=== PATIENT | female | born 1950 | race Caucasian/White ===

== ENCOUNTER 2017-08-24 18:33 | Inpatient (IN) | payer OTHER, MEDICARE ==
[~2017-08-24] VITALS: Ht 152.4 cm; Wt 56.2 kg
--- NOTE | 2017-08-24 19:33 | ED GI/GU/ABDOMINAL COMPLAINT ---
History of Present Illness General Chief Complaint: General Adult Stated Complaint: COLONOSCOPY/ENDO THIS AM, STILL BLEEDING,-BLOODTHI Source: patient, family Exam Limitations: no limitations Vital Signs & Intake/Output Vital Signs & Intake/Output Vital Signs Date Time Temp Pulse Resp B/P B/P Pulse O2 O2 Flow FiO2 Mean Ox Delivery Rate 08/26 0814 97.0 98 21 104/58 97 Room Air 08/26 0400 97 Room Air 08/26 0000 95 Room Air 08/25 2300 98.4 86 28 132/80 95 Room Air 08/25 2000 99 Room Air 08/25 1600 96 Room Air 08/25 1600 97.6 89 17 118/68 96 Room Air ED Intake and Output 08/26 0000 08/25 1200 Intake Total 2220 600 Output Total 1500 400 Balance 720 200 Intake, IV 970 600 Intake, Oral 1250 0 Number 1 0 Bowel Movements Output, Urine 1500 400 Patient 124 lb Weight Weight Bed scale Measurement Method Allergies Coded Allergies: No Known Allergies (08/24/17) Reconcile Medications Atorvastatin Calcium (Lipitor) 40 MG TABLET 1 TAB PO DAILY DYSLIPIDEMIA ( Reported) Gemfibrozil 600 MG TABLET 1 TAB PO BID DYSLIPIDEMIA (Reported) Lisinopril/Hydrochlorothiazide (Lisinopril-Hctz 20-12.5 MG Tab) 20 MG-12.5 MG TABLET 1 TAB PO DAILY HTN (Reported) Metoprolol Succ XL (Toprol Xl) 50 MG TAB 1 TAB PO DAILY HTN (Reported) Triage Note: PT TO ED FOR C/C OF PASSING BRB WITH CLOTS. PT HAD ROUTINE COLONOSCOPY THIS MORNING AT 1000 AND AFTER PT STARTED TO HAVE BLOODY IN STOOL. +LIGHTHEADED AND HYPOTENSIVE IN TRIAGE. DENEIS ABD PAIN OR NAUSEA. Triage Nurses Notes Reviewed? yes ? N Is pt currently ? No Onset: Gradual Duration: hour(s): Timing: multiple episodes today Quality/Severity: moderate HPI: 67yo female with hx of HTN presents to ED complaining of blood in BMs beginning after colonoscopy earlier this morning with Dr. Casillas. Patient went for rountine colonoscopy this morning and it was noted that she had a large diverticula in rectum. Dr. Casillas placed clips in diverticula given bleeding and patient was sent home. Since being home patient has had many BMs consisting mostly of blood. PAtient states that she has no pain with defication. PAtient c/o dizziness with positional changes and lightheadedness. SHe denies chest pain, dyspnea, urinary symptoms, abdominal pain, nausea, vomiting. (Adri Limon) Past History Travel History Traveled to [place] past 21 day No Medical History Any Pertinent Medical History? see below for history Cardiovascular: hypertension, hyperlipidemia Surgical History Surgical History: non-contributory Psychosocial History What is your primary language Swedish Tobacco Use: Never used ETOH Use: denies use Illicit Drug Use: denies illicit drug use Family History Hx Contributory? No (Adri Limon) Review of Systems Review of Systems Constitutional: Reports: see HPI. EENTM: Reports: no symptoms. Respiratory: Reports: no symptoms. Cardiovascular: Reports: no symptoms. GI: Reports: see HPI. Genitourinary: Reports: no symptoms. Musculoskeletal: Reports: no symptoms. Skin: Reports: no symptoms. Neurological/Psychological: Reports: see HPI. Hematologic/Endocrine: Reports: no symptoms. Immunologic/Allergic: Reports: no symptoms. All Other Systems: Reviewed and Negative (Adri Limon) Physical Exam Physical Exam General Appearance: well developed/nourished, no apparent distress, alert, awake Head: atraumatic, normal appearance Eyes: Bilateral: normal appearance. Ears, Nose, Throat, Mouth: hearing grossly normal Neck: normal inspection, supple, full range of motion Respiratory: normal breath sounds, no respiratory distress, lungs clear Cardiovascular: regular rate/rhythm Gastrointestinal: normal bowel sounds, soft, non-tender, no organomegaly Back: normal inspection, normal range of motion Extremities: normal range of motion Neurologic/Psych: awake, alert, oriented x 3 Skin: intact, warm/dry, pallor Core Measures ACS in differential dx? No Sepsis Present: No Sepsis Focused Exam Completed? No (Adri Limon) Progress Differential Diagnosis: bowel obstruction, diverticulitis, diverticular bleed, acute blood loss, symptomatic anemia Plan of Care: Orders Procedure Date/time Status Full Liquid Diet 08/26 B Active ICU LAB BUNDLE 08/26 0500 Complete CBC WITHOUT DIFFERENTIAL 08/26 0500 Complete Clear Liquid Diet 08/25 B Complete CBC WITHOUT DIFFERENTIAL 08/25 2124 Complete ICU LAB BUNDLE 08/25 1600 Complete CBC WITHOUT DIFFERENTIAL 08/25 1600 Complete Current Medications Sig/Max Start time Last Medication Dose Stop Time Status Admin Atorvastatin Calcium 40 MG DAILY 08/26 1000 AC 08/26 (Lipitor) 0909 Metoprolol Succinate 25 MG DAILY 08/26 1000 AC 08/26 (Toprol XL) 0909 Gemfibrozil 600 MG BID 08/25 2200 AC 08/26 (Lopid 600 MG Tab) 0909 Phosphate 250 MG PC AND AT BEDTIME 08/25 1800 AC 08/26 (Neutra-Phos) 0909 Potassium Chloride 40 MEQ ONCE ONE 08/25 1045 CAN (K-Dur) 08/25 1046 Pantoprazole Sodium 40 MG DAILY 08/24 2199 AC 08/26 (Protonix) 0909 Laboratory Tests 08/26/17 0437: Anion Gap 10, Estimated GFR > 60, Glucose 98, Calcium 8.6, Phosphorus 2.8, Magnesium 1.9, Total Bilirubin 0.4, AST 29, ALT 40, Albumin 3.3 L, CBC w Diff NO MAN DIFF REQ, RBC 2.98 L, MCV 89.6, MCH 30.5, MCHC 34.0, RDW 13.6, MPV 7.9, Gran % 63.9, Lymphocytes % 21.7, Monocytes % 10.3 H, Eosinophils % 3.7, Basophils % 0.4, Absolute Granulocytes 5.1, Absolute Lymphocytes 1.7, Absolute Monocytes 0.8 H, Absolute Eosinophils 0.3, Absolute Basophils 0 08/25/173: CBC w Diff NO MAN DIFF REQ, RBC 2.93 L, MCV 88.8, MCH 30.4, MCHC 34.2, RDW 13.3 , MPV 7.8, Gran % 63.9, Lymphocytes % 21.9, Monocytes % 11.0 H, Eosinophils % 2.6, Basophils % 0.6, Absolute Granulocytes 4.6, Absolute Lymphocytes 1.6, Absolute Monocytes 0.8 H, Absolute Eosinophils 0.2, Absolute Basophils 0 08/25/17 1621: Anion Gap 9, Estimated GFR > 60, Glucose 114 H, Calcium 8.5, Phosphorus 1.7 L, Magnesium 1.9, Total Bilirubin 0.3, AST 24, ALT 32, Albumin 3.3 L, CBC w Diff NO MAN DIFF REQ, RBC 2.81 L, MCV 88.8, MCH 29.9, MCHC 33.7, RDW 13.9, MPV 7.7, Gran % 66.3, Lymphocytes % 20.9, Monocytes % 10.3 H, Eosinophils % 2.0, Basophils % 0.5, Absolute Granulocytes 4.2, Absolute Lymphocytes 1.3, Absolute Monocytes 0.7 H, Absolute Eosinophils 0.1, Absolute Basophils 0 08/25/17 1047: CBC w Diff NO MAN DIFF REQ, RBC 3.16 L, MCV 89.5, MCH 29.9, MCHC 33.3, RDW 13.5 , MPV 7.9, Gran % 66.9, Lymphocytes % 19.4 L, Monocytes % 12.5 H, Eosinophils % 0.8, Basophils % 0.4, Absolute Granulocytes 4.7, Absolute Lymphocytes 1.4, Absolute Monocytes 0.9 H, Absolute Eosinophils 0.1, Absolute Basophils 0 Microbiology 08/25 1000 UPPER RESP: Surveillance Culture - RECD Dr. Pacheco present to see and evaluate patient. She recommends ICU admission for scope and application of locale coagulants to diverticular bleed. Labs are pending. [phone] Discussed this patient with hospitalist Dr. Pantoja. Patient continues to pass large clots per rectum however is in no pain. Vital signs show improvement however persistent hypotension. Patient transfused one unit. Dr. Pacheco to scope patient tonight given persistent bleeding. Initial ED EKG: SINUS TACHYCARDIA @ 102BPM, NONSPECIFIC ST CHANGES (Adri Limon) Departure Departure Disposition: STILL A PATIENT Condition: Stable Clinical Impression Primary Impression: Lower GI bleed Referrals: Char ABDULLAHI,Celeste (PCP/Family) Departure Forms: Customer Survey General Discharge Information (Adri Limon) Departure Time of Disposition: 2033 Admission Note Spoke With: Mervin Pantoja MD Documentation of Exam: Documentation of any treatments & extenuating circumstances including Concerns Regarding Discharge (functional status, medication knowledge or non-compliance, living conditions, etc.) that warrant an admission rather than observation: [ICU ADMISSION, CLOSE H/H MONITORING, NPO, TRANSFUSION PER PROTOCOL, FLEX SIGMOIDOSCOPY] PA/MINING ANALYST Co-Sign Statement Statement: ED Attending supervision documentation- [X] I saw and evaluated the patient. I have also reviewed all the pertinent lab results and diagnostic results. I agree with the findings and the plan of care as documented in the PA's/MINING ANALYST's documentation. [X] I have reviewed the ED Record and agree with the PA's/MINING ANALYST's documentation. [] Additions or exceptions (if any) to the PAs/MINING ANALYST's note and plan are summarized below: [] (Halie ABDULLAHI,Serena) Critical Care Note Critical Care Note Critical Care Time: 30-74 min (Sonal CARLISLE,Adri Medina) (Normal Saline 0.9%) 0927 Laboratory Tests 08/25/17 1621: Anion Gap 9, Estimated GFR > 60, Glucose 114 H, Calcium 8.5, Phosphorus 1.7 L, Magnesium 1.9, Total Bilirubin 0.3, AST 24, ALT 32, Albumin 3.3 L, CBC w Diff NO MAN DIFF REQ, RBC 2.81 L, MCV 88.8, MCH 29.9, MCHC 33.7, RDW 13.9, MPV 7.7, Gran % 66.3, Lymphocytes % 20.9, Monocytes % 10.3 H, Eosinophils % 2.0, Basophils % 0.5, Absolute Granulocytes 4.2, Absolute Lymphocytes 1.3, Absolute Monocytes 0.7 H, Absolute Eosinophils 0.1, Absolute Basophils 0 08/25/17 1047: CBC w Diff NO MAN DIFF REQ, RBC 3.16 L, MCV 89.5, MCH 29.9, MCHC 33.3, RDW 13.5 , MPV 7.9, Gran % 66.9, Lymphocytes % 19.4 L, Monocytes % 12.5 H, Eosinophils % 0.8, Basophils % 0.4, Absolute Granulocytes 4.7, Absolute Lymphocytes 1.4, Absolute Monocytes 0.9 H, Absolute Eosinophils 0.1, Absolute Basophils 0 08/25/17 0625: Anion Gap 11, Estimated GFR > 60, Glucose 111 H, Calcium 8.3 L, Phosphorus 3.0 , Magnesium 1.5 L, Total Bilirubin 0.5, AST 26, ALT 33, Albumin 3.2 L, CBC w Diff NO MAN DIFF REQ, RBC 3.16 L, MCV 88.4, MCH 30.6, MCHC 34.6, RDW 13.6, MPV 7.6, Gran % 68.9, Lymphocytes % 18.7 L, Monocytes % 11.6 H, Eosinophils % 0.4, Basophils % 0.4, Absolute Granulocytes 5.8, Absolute Lymphocytes 1.6, Absolute Monocytes 1.0 H, Absolute Eosinophils 0, Absolute Basophils 0 08/25/17 0246: CBC w Diff NO MAN DIFF REQ, RBC 3.25 L, MCV 89.4, MCH 30.0, MCHC 33.6, RDW 13.4 , MPV 7.9, Gran % 73.5, Lymphocytes % 14.0 L, Monocytes % 11.9 H, Eosinophils % 0.1, Basophils % 0.5, Absolute Granulocytes 7.0 H, Absolute Lymphocytes 1.3, Absolute Monocytes 1.1 H, Absolute Eosinophils 0, Absolute Basophils 0 08/24/17 2304: CBC w Diff NO MAN DIFF REQ, RBC 2.98 L, MCV 88.4, MCH 30.3, MCHC 34.3, RDW 13.6 , MPV 7.8, Gran % 79.7 H, Lymphocytes % 12.2 L, Monocytes % 7.8, Eosinophils % 0.1, Basophils % 0.2, Absolute Granulocytes 11.4 H, Absolute Lymphocytes 1.7, Absolute Monocytes 1.1 H, Absolute Eosinophils 0, Absolute Basophils 0 08/24/170: CBC w Diff Cancelled, WBC Cancelled, RBC Cancelled, Hgb Cancelled, Hct Cancelled , MCV Cancelled, MCH Cancelled, MCHC Cancelled, RDW Cancelled, Plt Count Cancelled, MPV Cancelled 08/24/17 1926: Anion Gap 14, Estimated GFR > 60, BUN/Creatinine Ratio 27.1 H, Glucose 154 H, Calcium 9.7, Total Bilirubin 0.2, AST 31, ALT 38, Alkaline Phosphatase 58, Troponin I < 0.01, Total Protein 6.5, Albumin 4.2, Globulin 2.3, Albumin/ Globulin Ratio 1.8, PT 12.1, INR 1.15, APTT 31, CBC w Diff NO MAN DIFF REQ, RBC 3.11 L, MCV 90.2, MCH 30.5, MCHC 33.8, RDW 13.1, MPV 7.4, Gran % 84.9 H, Lymphocytes % 7.7 L, Monocytes % 7.0, Eosinophils % 0.2, Basophils % 0.2, Absolute Granulocytes 12.3 H, Absolute Lymphocytes 1.1 L, Absolute Monocytes 1.0 H, Absolute Eosinophils 0, Absolute Basophils 0 Microbiology 08/25 1000 UPPER RESP: Surveillance Culture - RECD 02/17 0216 GI: Surveillance Culture - CAN Cancelled: PER LABELS- PATIENT REFUSED Dr. Pacheco present to see and evaluate patient. She recommends ICU admission for scope and application of locale coagulants to diverticular bleed. Labs are pending. [phone] Discussed this patient with hospitalist Dr. Pantoja. Patient continues to pass large clots per rectum however is in no pain. Vital signs show improvement however persistent hypotension. Patient transfused one unit. Dr. Pacheco to scope patient tonight given persistent bleeding. (Adri Limon) (Serena Ambrose MD) Departure Departure Disposition: STILL A PATIENT Condition: Stable Clinical Impression Primary Impression: Lower GI bleed Referrals: Char ABDULLAHI,Celeste (PCP/Family) Departure Forms: Customer Survey General Discharge Information (Adri Limon) Departure Time of Disposition: 2033 Admission Note Spoke With: Mervin Pantoja MD Documentation of Exam: Documentation of any treatments & extenuating circumstances including Concerns Regarding Discharge (functional status, medication knowledge or non-compliance, living conditions, etc.) that warrant an admission rather than observation: [ICU ADMISSION, CLOSE H/H MONITORING, NPO, TRANSFUSION PER PROTOCOL, FLEX SIGMOIDOSCOPY] PA/MINING ANALYST Co-Sign Statement Statement: ED Attending supervision documentation- [X] I saw and evaluated the patient. I have also reviewed all the pertinent lab results and diagnostic results. I agree with the findings and the plan of care as documented in the PA's/MINING ANALYST's documentation. [X] I have reviewed the ED Record and agree with the PA's/MINING ANALYST's documentation. [] Additions or exceptions (if any) to the PAs/MINING ANALYST's note and plan are summarized below: [] (Halie ABDULLAHI,Serena) Critical Care Note Critical Care Note Critical Care Time: 30-74 min (Adri Limon)
[2017-08-24 19:34] LABS: ABSOLUTE BASOPHIL COUNT 0 /CUMM (0.0-0.2); ABSOLUTE EOSINOPHIL COUNT 0 /CUMM (0.0-0.7); ABSOLUTE GRANULOCYTE CT 12.3 /CUMM (1.4-6.5); ABSOLUTE LYMPH COUNT 1.1 /CUMM (1.2-3.4); BASOPHIL % 0.2 % (0.0-2.0); EOSINOPHIL % 0.2 % (0-5); GRANULOCYTE % 84.9 % (42.2-75.2); MEAN CORPUSCULAR HGB 30.5 PG (27.0-31.0); MEAN CORPUSCULAR HGB CONC 33.8 G/DL (33.0-37.0); MEAN CORPUSCULAR VOLUME 90.2 FL (81.0-99.0); MEAN PLATELET VOLUME 7.4 FL (7.4-10.4); PLATELET COUNT 362 /CUMM (130-400); RBC DISTRIBUTION WIDTH 13.1 % (11.5-14.5); RED BLOOD CELL CT 3.11 /CUMM (4.20-5.40); WHITE BLOOD CELL COUNT 14.5 /CUMM (4.8-10.8)
[2017-08-24 19:45] LABS: PT 12.1 SEC (9.4-12.5); PTT 31 SEC (25-37)
--- NOTE | 2017-08-24 19:59 | Cons- Gastroenterology ---
General Information and HPI Consulting Request Date of Consult: 08/24/17 Requested By: ORESTES ARIAS Amanda Reason for Consult: Lower GI Bleed Source of Information: patient Exam Limitations: no limitations History of Present Illness: Ms. Barry is a 67 year old female who underwent baseline screening colonoscopy by Dr. Nolberto Casillas earlier today. She had a large diverticulum in the rectum that , at the end of the procedure, was found to be bleeding. Per Dr. Casillas "There was also a large diverticulum in the rectum which was not initially appreciated on frontal views, however the diverticulum began bleeding after retroflexion was performed. The bleeding was controlled with placement of 2 hemoclips along the edge of the bleeding site of the diverticulum which was approximately 1.5 cm in width." Her colonoscopy was other significant for scattered diverticuli. There were no polyps or masses. Ms. Barry was instructed to go to the [place] ED if she had further bleeding. She called the office later in the afternoon and reported that she had had recurrent bright red blood per rectum with clots. She was told to come to the ED but declined initially deciding to see if it stopped on it's own. After the bleeding continued briskly and she began to feel somewhat weak she presented to the ED. Upon arrival she had a systolic blood pressure of 88 with a HR of 112. She denies chest pain or shortness of breath. She denies nausea, vomiting or abdominal pain. Her initial H/H was 9.5/28.0 with 362,000 platelets. Her WBC were 14.5. She had a BUN/Creatinine of 19/0.7. Her PT/INR was 12.1/1.15. She denies use of ASA, NSAIDs (which were stopped prior to procedure). She does not take any anticoagulants. PMH is significant for HTN and dyslipidemia. Allergies/Medications Allergies: Coded Allergies: No Known Allergies (08/24/17) Home Med List: Atorvastatin Calcium (Lipitor) 40 MG TABLET 1 TAB PO DAILY DYSLIPIDEMIA ( Reported) Gemfibrozil 600 MG TABLET 1 TAB PO BID DYSLIPIDEMIA (Reported) Lisinopril/Hydrochlorothiazide (Lisinopril-Hctz 20-12.5 MG Tab) 20 MG-12.5 MG TABLET 1 TAB PO DAILY HTN (Reported) Metoprolol Succ XL (Toprol Xl) 50 MG TAB 1 TAB PO DAILY HTN (Reported) Current Medications: Current Medications Sig/Max Start time Last Medication Dose Route Stop Time Status Admin Sodium Chloride 1,000 ML BOLUS ONE 08/24 1899 AC 08/24 IV 08/24 Past History Travel History Traveled to [place] past 21 day No Medical History Cardiovascular: hypertension, hyperlipidemia Surgical History Surgical History: none Psychosocial History ETOH Use: denies use Illicit Drug Use: denies illicit drug use Review of Systems Review of Systems Constitutional: Reports: weakness. EENTM: Reports: no symptoms. Cardiovascular: Reports: no symptoms. Respiratory: Reports: no symptoms. GI: Reports: see HPI. Genitourinary: Reports: no symptoms. Musculoskeletal: Reports: no symptoms. Skin: Reports: no symptoms. Neurological/Psychological: Reports: no symptoms. Hematologic/Endocrine: Reports: no symptoms. Immunologic/Allergic: Reports: no symptoms. Exam & Diagnostic Data Vital Signs and I&O Vital Signs Date Time Temp Pulse Resp B/P B/P Pulse O2 O2 Flow FiO2 Mean Ox Delivery Rate 08/24 1849 97.5 112 15 88/59 97 Room Air Room Air Physical Exam General Appearance: well developed/nourished, no apparent distress, alert, awake , comfortable Head: atraumatic, normal appearance Eyes: Bilateral: normal appearance. Ears, Nose, Throat: normal pharynx, hearing grossly normal Neck: normal inspection, supple, full range of motion Respiratory: normal breath sounds, lungs clear Cardiovascular: regular rate/rhythm, Normal S1 and S2 without rub, murmur or gallop Gastrointestinal: normal bowel sounds, soft, non-tender, no organomegaly, bright red blood with clots in the commode Extremities: normal inspection Neurologic/Psych: no motor/sensory deficits, awake, alert, oriented x 3, normal mood/affect Cranial Nerves: Cranial Nerves II-XII intact Results Pertinent Lab Results: Laboratory Tests 08/24 1925 Chemistry Sodium Pending Potassium Pending Chloride Pending Carbon Dioxide Pending Anion Gap Pending BUN Pending Creatinine Pending BUN/Creatinine Ratio Pending Glucose Pending Calcium Pending Total Bilirubin Pending AST Pending ALT Pending Alkaline Phosphatase Pending Troponin I Pending Total Protein Pending Albumin Pending Globulin Pending Albumin/Globulin Ratio Pending Coagulation PT (9.4 - 12.5 SEC) 12.1 INR (0.90 - 1.19) 1.15 APTT (25 - 37 SEC) 31 Hematology CBC w Diff NO MAN DIFF REQ WBC (4.8 - 10.8 /CUMM) 14.5 H RBC (4.20 - 5.40 /CUMM) 3.11 L Hgb (12.0 - 16.0 G/DL) 9.5 L Hct (37 - 47 %) 28.0 L MCV (81.0 - 99.0 FL) 90.2 MCH (27.0 - 31.0 PG) 30.5 MCHC (33.0 - 37.0 G/DL) 33.8 RDW (11.5 - 14.5 %) 13.1 Plt Count (130 - 400 /CUMM) 362 MPV (7.4 - 10.4 FL) 7.4 Gran % (42.2 - 75.2 %) 84.9 H Lymphocytes % (20.5 - 51.1 %) 7.7 L Monocytes % (1.7 - 9.3 %) 7.0 Eosinophils % (0 - 5 %) 0.2 Basophils % (0.0 - 2.0 %) 0.2 Absolute Granulocytes (1.4 - 6.5 /CUMM) 12.3 H Absolute Lymphocytes (1.2 - 3.4 /CUMM) 1.1 L Absolute Monocytes (0.10 - 0.60 /CUMM) 1.0 H Absolute Eosinophils (0.0 - 0.7 /CUMM) 0 Absolute Basophils (0.0 - 0.2 /CUMM) 0 Assessment/Plan Assessment/Recommendations: ASSESSMENT: Lower Gastrointestinal Bleeding from Rectal Diverticulum RECOMMENDATIONS: 1. Check H/H. Transfuse to Keep Hct >7 2. Check PT/INR 3. Urgent Flex Sig for control of bleeding. I have explained to the family that if I am unable to control bleeding endoscopically then we will call interventional radiology for embolization Consult Acknowledgment - Thank you for your consult request.
--- NOTE | 2017-08-24 20:51 | History & Physical ---
See Addendum General Information and HPI MD Statement: I have seen and personally examined BG BARRY and documented this H&P. The patient is a 67 year old F who presented with a patient stated chief complaint of [bright red blood per rectum]. Source of Information: patient Exam Limitations: no limitations History of Present Illness: Mrs. Barry is a 67-year-old lady with a past medical history of hypertension, and hyperlipidemia presented to emergency department with a chief complaint of bright red blood per rectum. Earlier today patient underwent screening colonoscopy as she found to have guaiac-positive stool, procedure done by Dr. Casillas today and there was a finding of pandiverticulosis, internal hemorrhoids with hypertrophied anal papilla. However there is a rectal diverticulum that started to bleed after retroflexion was performed status post placement of 2 hemoclips with good hemostasis being achieved. Patient has been told if she noticed any further bleeding to come to the emergency department, the patient had recurrent bright red blood per rectum with clots at home she also felt weak so she decided to come to the emergency department for more evaluation. At the emergency department her blood pressure was as low as 80 mmHg systolic and her heart rate is up to 112. She also had an episode of bright red blood per rectum at the emergency department, Dr. Pacheco ([facility]) evaluated the patient and the decision was made to do colonoscopy at the ICU. Patient denies any chest pain, palpitations, shortness of breath, dizziness, and there is no change in urinary habits. Allergies/Medications Allergies: Coded Allergies: No Known Allergies (08/24/17) Home Med list Atorvastatin Calcium (Lipitor) 40 MG TABLET 1 TAB PO DAILY DYSLIPIDEMIA ( Reported) Gemfibrozil 600 MG TABLET 1 TAB PO BID DYSLIPIDEMIA (Reported) Lisinopril/Hydrochlorothiazide (Lisinopril-Hctz 20-12.5 MG Tab) 20 MG-12.5 MG TABLET 1 TAB PO DAILY HTN (Reported) Metoprolol Succ XL (Toprol Xl) 50 MG TAB 1 TAB PO DAILY HTN (Reported) Past History Travel History Traveled to [place] past 21 day No Medical History Cardiovascular: hypertension, hyperlipidemia Surgical History Surgical History: non-contributory Past Family/Social History Psychosocial History ETOH Use: denies use Illicit Drug Use: denies illicit drug use Review of Systems Review of Systems Constitutional: Reports: no symptoms. Cardiovascular: Reports: no symptoms. Respiratory: Reports: no symptoms. GI: Reports: see HPI. Genitourinary: Reports: no symptoms. Musculoskeletal: Reports: no symptoms. Hematologic/Endocrine: Reports: bleeding (BRBPR). All Other Systems: Reviewed and Negative Exam & Diagnostic Data Last 24 Hrs of Vital Signs/I&O Vital Signs Date Time Temp Pulse Resp B/P B/P Pulse O2 O2 Flow FiO2 Mean Ox Delivery Rate 08/24 2101 110 116/65 08/24 2044 98.3 105 18 95/63 96 Room Air 08/24 184 97.5 112 15 88/59 97 Room Air Room Air Physical Exam General Appearance Alert, Oriented X3, Cooperative, No Acute Distress Skin No Rashes, No Breakdown, No Significant Lesion Cardiovascular Regular Rate, Normal S1, Normal S2, No Murmurs Lungs Clear to Auscultation, Normal Air Movement Abdomen Normal Bowel Sounds, Soft, No Tenderness Neurological Strength at 5/5 X4 Ext, Normal Tone, Sensation Intact Extremities No Edema, Normal Pulses Vascular Normal Pulses, Pulses Symmetrical Last 24 Hrs of Labs/Ever: Laboratory Tests 08/24/171925: Anion Gap 14, Estimated GFR > 60, BUN/Creatinine Ratio 27.1 H, Glucose 154 H, Calcium 9.7, Total Bilirubin 0.2, AST 31, ALT 38, Alkaline Phosphatase 58, Troponin I < 0.01, Total Protein 6.5, Albumin 4.2, Globulin 2.3, Albumin/ Globulin Ratio 1.8, PT 12.1, INR 1.15, APTT 31, CBC w Diff NO MAN DIFF REQ, RBC 3.11 L, MCV 90.2, MCH 30.5, MCHC 33.8, RDW 13.1, MPV 7.4, Gran % 84.9 H, Lymphocytes % 7.7 L, Monocytes % 7.0, Eosinophils % 0.2, Basophils % 0.2, Absolute Granulocytes 12.3 H, Absolute Lymphocytes 1.1 L, Absolute Monocytes 1.0 H, Absolute Eosinophils 0, Absolute Basophils 0 Assessment/Plan Assessment: Mrs. Barry is a 67-year-old lady with a past medical history of hypertension, and hyperlipidemia who had screening colonoscopy earlier today presented to emergency department with a chief complaint of bright red blood per rectum. Admitted to ICU for lower GI bleed Assessmentl #Lower GI bleed s/p screening colonoscopy #History of hypertension #History of hyperlipidemia Plan: * We'll admit the patient to the unit * Dr. Pacheco evaluated the patient and the decision was made to do colonoscopy at the bedside to stop bleeding with epinephrine injection. * 2 wide bore cannula * Type and screen, 2 units of blood ordered stat * Will keep hydrating the patient with IV normal saline, with boluses if needed * Monitor hemodynamics * IV Protonix * Will check CBC Q 4 for now, or as otherwise directed by GI * EKG ordered at ED, please F/U the result ALPS for dvt ppx Full code. As Ranked By This Provider Problem List: 1. Lower GI bleed Core Measures/Misc (03/25) Acute Coronary Syndrome ACS Diagnosis: No Congestive Heart Failure Congestive Heart Failure Diagnosis No Cerebrovascular Accident CVA/TIA Diagnosis: No VTE (View Protocol) VTE Risk Factors Acute Medical Illness No Mechanical VTE Prophylaxis d/t N/A MechProphylax Ordered No VTE Pharm Prophylaxis d/t Bleeding (Active) Sepsis (View protocol) Sepsis Present: No
[2017-08-24 23:29] LABS: ABSOLUTE BASOPHIL COUNT 0 /CUMM (0.0-0.2); ABSOLUTE EOSINOPHIL COUNT 0 /CUMM (0.0-0.7); ABSOLUTE GRANULOCYTE CT 11.4 /CUMM (1.4-6.5); ABSOLUTE LYMPH COUNT 1.7 /CUMM (1.2-3.4); ABSOLUTE MONOCYTE COUNT 1.1 /CUMM (0.10-0.60); BASOPHIL % 0.2 % (0.0-2.0); EOSINOPHIL % 0.1 % (0-5); GRANULOCYTE % 79.7 % (42.2-75.2); HEMATOCRIT 26.4 % (37-47); MEAN CORPUSCULAR HGB 30.3 PG (27.0-31.0); MEAN CORPUSCULAR HGB CONC 34.3 G/DL (33.0-37.0); MEAN CORPUSCULAR VOLUME 88.4 FL (81.0-99.0); MEAN PLATELET VOLUME 7.8 FL (7.4-10.4); PLATELET COUNT 284 /CUMM (130-400); RBC DISTRIBUTION WIDTH 13.6 % (11.5-14.5); RED BLOOD CELL CT 2.98 /CUMM (4.20-5.40); WHITE BLOOD CELL COUNT 14.3 /CUMM (4.8-10.8)
[2017-08-25] MEDS ORDERED: GEMFIBROZIL600 M1 PO (01:03)
[2017-08-25] MEDS ORDERED: LISINOPRIL-HCT1 EACH PO (01:03)
[2017-08-25] MEDS ORDERED: TOPROL XL50 M1 PO (01:04)
[2017-08-25] MEDS ORDERED: LIPITOR40 M1 PO (01:04)
[2017-08-25 01:16] VITALS: BP 128/78
[2017-08-25 03:33] LABS: ABSOLUTE BASOPHIL COUNT 0 /CUMM (0.0-0.2); ABSOLUTE EOSINOPHIL COUNT 0 /CUMM (0.0-0.7); ABSOLUTE LYMPH COUNT 1.3 /CUMM (1.2-3.4); ABSOLUTE MONOCYTE COUNT 1.1 /CUMM (0.10-0.60); BASOPHIL % 0.5 % (0.0-2.0); EOSINOPHIL % 0.1 % (0-5); GRANULOCYTE % 73.5 % (42.2-75.2); HEMATOCRIT 29.1 % (37-47); MEAN CORPUSCULAR HGB CONC 33.6 G/DL (33.0-37.0); MEAN CORPUSCULAR VOLUME 89.4 FL (81.0-99.0); MEAN PLATELET VOLUME 7.9 FL (7.4-10.4); PLATELET COUNT 224 /CUMM (130-400); RBC DISTRIBUTION WIDTH 13.4 % (11.5-14.5); RED BLOOD CELL CT 3.25 /CUMM (4.20-5.40); WHITE BLOOD CELL COUNT 9.5 /CUMM (4.8-10.8)
[2017-08-25 06:36] LABS: ABSOLUTE BASOPHIL COUNT 0 /CUMM (0.0-0.2); ABSOLUTE EOSINOPHIL COUNT 0 /CUMM (0.0-0.7); ABSOLUTE GRANULOCYTE CT 5.8 /CUMM (1.4-6.5); ABSOLUTE LYMPH COUNT 1.6 /CUMM (1.2-3.4); BASOPHIL % 0.4 % (0.0-2.0); EOSINOPHIL % 0.4 % (0-5); GRANULOCYTE % 68.9 % (42.2-75.2); MEAN CORPUSCULAR HGB 30.6 PG (27.0-31.0); MEAN CORPUSCULAR HGB CONC 34.6 G/DL (33.0-37.0); MEAN CORPUSCULAR VOLUME 88.4 FL (81.0-99.0); MEAN PLATELET VOLUME 7.6 FL (7.4-10.4); PLATELET COUNT 224 /CUMM (130-400); RBC DISTRIBUTION WIDTH 13.6 % (11.5-14.5); RED BLOOD CELL CT 3.16 /CUMM (4.20-5.40); WHITE BLOOD CELL COUNT 8.5 /CUMM (4.8-10.8)
--- NOTE | 2017-08-25 07:32 | Admission Certification ---
Admission Certification Certification Statement - As attending physician, I certify that at the time of - admission, based on clinical presentation, severity of - symptoms, need for further diagnostic testing and - therapeutic interventions, and risk of adverse outcomes - without in-hospital treatment, in my clinical assessment, - this patient requires an acute hospital stay for a minimum - of two nights or longer. I have also considered psychsocial - factors such as support system, advanced age, financial - issues, cognitive issues, and failed out-patient treatments, - past re-admission history, safety of patient, and lack of - compliance as applicable. Specific rationale supporting this admission is: Bright red blood per rectum
[2017-08-25 07:56] VITALS: BP 100/60
--- NOTE | 2017-08-25 08:36 | Cons- CRCU ---
Darrel ABDULLAHI,Ann 08/25/17 0835: General Information and HPI Consulting Request Date of Consult: 08/25/17 Requested By: Billie History of Present Illness: Mrs. Barry is a 67-year-old lady with a past medical history of hypertension, and hyperlipidemia presented to emergency department with a chief complaint of bright red blood per rectum. Earlier today patient underwent screening colonoscopy as she found to have guaiac-positive stool, procedure done by Dr. Casillas today and there was a finding of pandiverticulosis, internal hemorrhoids with hypertrophied anal papilla. However there is a rectal diverticulum that started to bleed after retroflexion was performed status post placement of 2 hemoclips with good hemostasis being achieved. Patient has been told if she noticed any further bleeding to come to the emergency department, the patient had recurrent bright red blood per rectum with clots at home she also felt weak so she decided to come to the emergency department for more evaluation. Upon arrival she had a systolic blood pressure of 88 with a HR of 112. She denies chest pain or shortness of breath. She denies nausea, vomiting or abdominal pain. She denies use of ASA, NSAIDs (which were stopped prior to procedure). She does not take any anticoagulants. Her initial H/H was 9.5/28.0 with 362,000 platelets. Her WBC were 14.5. She had a BUN/Creatinine of 19/0.7. Her PT/INR was 12.1/1.15 In ER patient had 4 bloody bowel movements no stool. Orthostatic positive. [facility] was called who suggested that patient will need immediate colonoscopy. Patient was admitted in ICU and underwent colonoscopy and bleeding was controlled with cauterization. MAXIMUM TEMPERATURE 98, heart rate ranging 110s to 180s respiratory rate 18 blood pressure ranging 120s to 100/70 to 60s satting 96% on room air H/H stable 9.7/28 status post 2 unit transfusion goal Hb 7 Potassium 2.9, magnesium 1.5 repleted If patient rebleeds we will probably have to involve interventional radiology for embolization Allergies/Medications Allergies: Coded Allergies: No Known Allergies (08/24/17) Home Med List: Atorvastatin Calcium (Lipitor) 40 MG TABLET 1 TAB PO DAILY DYSLIPIDEMIA ( Reported) Gemfibrozil 600 MG TABLET 1 TAB PO BID DYSLIPIDEMIA (Reported) Lisinopril/Hydrochlorothiazide (Lisinopril-Hctz 20-12.5 MG Tab) 20 MG-12.5 MG TABLET 1 TAB PO DAILY HTN (Reported) Metoprolol Succ XL (Toprol Xl) 50 MG TAB 1 TAB PO DAILY HTN (Reported) Review of Systems Review of Systems Constitutional: Reports: see HPI. Past History Travel History Traveled to [place] past 21 day No Medical History Blood Transfusion Hx: No Neurological: NONE EENT: NONE Cardiovascular: hypertension, hyperlipidemia Respiratory: NONE Gastrointestinal: GERD Hepatic: NONE Renal: NONE Musculoskeletal: NONE Psychiatric: NONE Endocrine: NONE Blood Disorders: NONE Cancer(s): NONE API ARCHITECT/Reproductive: D&C Surgical History Surgical History: non-contributory Psychosocial History Where Do You Live? Home Smoking Status: Never Smoked ETOH Use: denies use Illicit Drug Use: denies illicit drug use Exam & Diagnostic Data Last 24 Hrs of Vital Signs/I&O Vital Signs Date Time Temp Pulse Resp B/P B/P Pulse O2 O2 Flow FiO2 Mean Ox Delivery Rate 08/25 0756 97.3 84 18 100/60 96 Room Air 08/25 0400 98 Room Air 08/25 0116 97.5 84 16 128/78 96 Room Air 08/25 0000 10 Room Air 08/24 2130 99 Room Air 08/24 2102 110 116/65 08/24 2045 98.3 105 18 95/63 96 Room Air 08/24 1849 97.5 112 15 88/59 97 Room Air Room Air Intake & Output 08/25 1600 08/25 0800 08/25 0000 Intake Total 5813 250 5584 Output Total 600 400 0 Balance 577 617 7747 Intake, Blood 350 Product Intake, IV 147 530 2387 Intake, Oral 600 0 0 Number 0 Bowel Movements Output, Urine 600 400 0 Patient 124 lb 123 lb Weight Weight Bed scale Bed scale Measurement Method Physical Exam General Appearance: well developed/nourished, no apparent distress, alert, awake , comfortable Head: atraumatic Neck: normal inspection Respiratory: normal breath sounds, chest non-tender Cardiovascular: s1, s2 Gastrointestinal: normal bowel sounds, soft, non-tender Extremities: no edema Last 48 Hrs of Labs/Ever: Laboratory Tests 08/25/17 1621: Anion Gap 9, Estimated GFR > 60, Glucose 114 H, Calcium 8.5, Phosphorus 1.7 L, Magnesium 1.9, Total Bilirubin 0.3, AST 24, ALT 32, Albumin 3.3 L, CBC w Diff NO MAN DIFF REQ, RBC 2.81 L, MCV 88.8, MCH 29.9, MCHC 33.7, RDW 13.9, MPV 7.7, Gran % 66.3, Lymphocytes % 20.9, Monocytes % 10.3 H, Eosinophils % 2.0, Basophils % 0.5, Absolute Granulocytes 4.2, Absolute Lymphocytes 1.3, Absolute Monocytes 0.7 H, Absolute Eosinophils 0.1, Absolute Basophils 0 08/25/17 1047: CBC w Diff NO MAN DIFF REQ, RBC 3.16 L, MCV 89.5, MCH 29.9, MCHC 33.3, RDW 13.5 , MPV 7.9, Gran % 66.9, Lymphocytes % 19.4 L, Monocytes % 12.5 H, Eosinophils % 0.8, Basophils % 0.4, Absolute Granulocytes 4.7, Absolute Lymphocytes 1.4, Absolute Monocytes 0.9 H, Absolute Eosinophils 0.1, Absolute Basophils 0 08/25/17 0625: Anion Gap 11, Estimated GFR > 60, Glucose 111 H, Calcium 8.3 L, Phosphorus 3.0 , Magnesium 1.5 L, Total Bilirubin 0.5, AST 26, ALT 33, Albumin 3.2 L, CBC w Diff NO MAN DIFF REQ, RBC 3.16 L, MCV 88.4, MCH 30.6, MCHC 34.6, RDW 13.6, MPV 7.6, Gran % 68.9, Lymphocytes % 18.7 L, Monocytes % 11.6 H, Eosinophils % 0.4, Basophils % 0.4, Absolute Granulocytes 5.8, Absolute Lymphocytes 1.6, Absolute Monocytes 1.0 H, Absolute Eosinophils 0, Absolute Basophils 0 08/25/17 0246: CBC w Diff NO MAN DIFF REQ, RBC 3.25 L, MCV 89.4, MCH 30.0, MCHC 33.6, RDW 13.4 , MPV 7.9, Gran % 73.5, Lymphocytes % 14.0 L, Monocytes % 11.9 H, Eosinophils % 0.1, Basophils % 0.5, Absolute Granulocytes 7.0 H, Absolute Lymphocytes 1.3, Absolute Monocytes 1.1 H, Absolute Eosinophils 0, Absolute Basophils 0 08/24/17 2304: CBC w Diff NO MAN DIFF REQ, RBC 2.98 L, MCV 88.4, MCH 30.3, MCHC 34.3, RDW 13.6 , MPV 7.8, Gran % 79.7 H, Lymphocytes % 12.2 L, Monocytes % 7.8, Eosinophils % 0.1, Basophils % 0.2, Absolute Granulocytes 11.4 H, Absolute Lymphocytes 1.7, Absolute Monocytes 1.1 H, Absolute Eosinophils 0, Absolute Basophils 0 08/24/172129: CBC w Diff Cancelled, WBC Cancelled, RBC Cancelled, Hgb Cancelled, Hct Cancelled , MCV Cancelled, MCH Cancelled, MCHC Cancelled, RDW Cancelled, Plt Count Cancelled, MPV Cancelled 08/24/171925: Anion Gap 14, Estimated GFR > 60, BUN/Creatinine Ratio 27.1 H, Glucose 154 H, Calcium 9.7, Total Bilirubin 0.2, AST 31, ALT 38, Alkaline Phosphatase 58, Troponin I < 0.01, Total Protein 6.5, Albumin 4.2, Globulin 2.3, Albumin/ Globulin Ratio 1.8, PT 12.1, INR 1.15, APTT 31, CBC w Diff NO MAN DIFF REQ, RBC 3.11 L, MCV 90.2, MCH 30.5, MCHC 33.8, RDW 13.1, MPV 7.4, Gran % 84.9 H, Lymphocytes % 7.7 L, Monocytes % 7.0, Eosinophils % 0.2, Basophils % 0.2, Absolute Granulocytes 12.3 H, Absolute Lymphocytes 1.1 L, Absolute Monocytes 1.0 H, Absolute Eosinophils 0, Absolute Basophils 0 Assessment/Plan CRCU Impression/Plan: Mrs. Barry is a 67-year-old lady with a past medical history of hypertension, and hyperlipidemia presented to emergency department with a chief complaint of bright red blood per rectum. The patient is being evaluated treated for following conditions #Acute blood loss anemia secondary to rectal diverticular bleed, s/p colonoscopy Patient started experiencing bleeding from rectal diverticulum after screening colonoscopy. In ER patient had 4 bloody bowel movements no stool. Orthostatic positive. She underwent urgent colonoscopy. The bleeding was controlled using BiCAP electrocautery. She received 2 units of PRBCs -Monitor H&H stable -Transfuse if hemoglobin less than 7 -Advance diet to clear liquids today, we will progressively advance as patient tolerates -Continue Protonix -We will get in touch with GI if there is recurrent bleeding. There is high probability of rebleed during this admission or later. We will get in touch with interventional radiology for embolization if required after consulting with GI #Hypokalemia Monitor BEP and replete #History of HTN -We will start metoprolol today -Lisinopril and hydrochlorothiazide on hold, start as blood pressure allows #History of HLD We will restart patient's antihyperlipidemic regimen Full code/full liquid/DVT prophylaxis alps only Consult Acknowledgment - Thank you for your consult request. Amaury ABDULLAHI,[facility] 08/25/17 1151: Assessment/Plan CRCU Other Findings/Comments: Mrs. Barry is a 67-year-old lady with a past medical history of hypertension, and hyperlipidemia presented to emergency department with a chief complaint of bright red blood per rectum. Earlier today patient underwent screening colonoscopy as she found to have guaiac-positive stool, procedure done by Dr. Casillas today and there was a finding of pandiverticulosis, internal hemorrhoids with hypertrophied anal papilla. However there is a rectal diverticulum that started to bleed after retroflexion was performed status post placement of 2 hemoclips with good hemostasis being achieved. Patient has been told if she noticed any further bleeding to come to the emergency department, the patient had recurrent bright red blood per rectum with clots at home she also felt weak so she decided to come to the emergency department for more evaluation. Upon arrival she had a systolic blood pressure of 88 with a HR of 112. She denies chest pain or shortness of breath. She denies nausea, vomiting or abdominal pain. She denies use of ASA, NSAIDs (which were stopped prior to procedure). She does not take any anticoagulants. Subsequently pt has had a flex sig now has stopped IMPRESSION + Acute blood loss anemia secondary to diverticular bleed, s/p colonoscopy and sub flex sig + Rectal diverticular bleeding which has stopped + History of hypertension REC DC ivf Watch crit Diet per GI Monitor blood work and cbc PPI REplace potassium IV and PO SLowly resume BP meds at a lower dose (start metoprolol 25 mg first) Will follow IF pt bleeds will have IR see the patient for angio TTS 36 mins Consult Acknowledgment - Thank you for your consult request.
--- NOTE | 2017-08-25 10:43 | Proc Note Colonoscopy ---
Colonoscopy Procedure Medical History: unchanged Mental Status: alert/oriented Heart/Lung Eval Prior to Sedation: within normal limits Candidate for Sedation? Yes Date of Last Colonoscopy: 08/24/2017 Procedure Date: 08/24/17 Procedure Type: Proctoscopy with Control of Bleeding Operations Advisor: MD Kasper Deborah E. ASA Classification: III Indications: 1. Lower GI Bleeding 2. Acute blood loss anemia 3. Hypotension 4. Acute drop in hemoglobin and hematocrit 5. Known rectal diverticulum with bleeding Instrument (Colonoscope): single channel Meds Received: GETA Patient's Tolerance: good Complications: none Extent Reached: Distal Sigmoid Colon Prep: Unprepped Procedure: The patient was unprepped. She had eaten earlier that afternoon and thus was intubated by anesthesiology. Note: Informed consent was obtained prior to procedure. Risks and benefits of procedure were discussed with patient. Potential complications discussed included perforation, bleeding, abdominal pain, and adverse reaction to medications. It was explained that iany or all of these complications could result in the need for extended hospitalization, emergency surgery, transfusion of packed red blood cells (with the risk of HIV or hepatitis virus), intubation with mechanical ventilation, and possible need for antibiotics. It was further explained that an existing tumor polyp or mucosal abnormality might not be identified at the time of the procedure thus resulting in a missed opportunity for early diagnosis and treatment of a gastrointestinal malignancy or disease with possible interval development of a gastrointestinal cancer or other disease with possible worsening of clinical condition in the interval between endoscopies. It was also discussed that complications are not limited to those listed above. Possible alternatives to endoscopic treatment or evaluation were discussed. All questions were answered. Continuous EKG and blood pressure monitors were attached. Supplemental oxygen was provided with O2 Sat monitoring. Patient was placed in the left lateral decubitus position. A surgical timeout was performed. All persons in the room were identified. All concerns were expressed and answered. Intubation and Sedation was administered by anesthesia and titrated to comfort prior to starting procdedure. A digital rectal exam was performed. There was normal tone and no masses. The Olympus CHF 180AL video colonoscope was advanced under direct vision to the rectum. There was a large clot filling the rectum which the patient expelled. The large 1.5 cm diverticulum with 2 endoclips was visualized. 1:10,000 and epinephrine 12 mL was injected around the diverticulum but not within the diverticulum. Injections were made approximately 1/2-1 cm from the diverticular at. There is appropriate blanching of the mucosa. The area was irrigated and continued oozing was noted. A large clot was evacuated from the rectum. Using a cold polypectomy snare and cold biopsy forceps the roof of the clot within the diverticulum was removed. The base of the diverticulum had stable adherent clot which was not removed. Oozing was noted at the base of the diverticulum adjacent to the endoclips. Using BiCAP electrocautery at a setting of 10 W 3 applications were made to the area. The area was irrigated and observed for 2 minutes. There was no further oozing noted. Specimens Removed: None Findings: 1.5 cm rectal diverticulum with active bleeding, [address] Impression: 1.5 cm rectal diverticulum with active bleeding, [address] Recommendations: 1. After current unit of blood has finished transfusing would obtain stat H&H 2. Would transfuse to keep hemoglobin greater than 7 3. For recurrent bleeding would call Opal Kasper M.D. immediately. I have given the attending physician, Dr. Pantoja, my cell phone number so that she can call me directly at home. I will help facilitate a call to interventional radiology. I do not believe that a third attempt at endoscopic control of bleeding would be warranted at this point 4. Serial H&H every 4 hours 4 5. Call Opal Kasper M.D. immediately for any change in clinical condition 6. IV normal saline 7. Keep NPO overnight. If no further bleeding would start clear liquids in a.m. and then advance gradually. 8. I had a 25 minute discussion with the patient's family regarding the natural history of diverticular bleeding. I also discussed that she was at high risk for rebleeding but that I could not predict if and when this would happen. I reviewed the treatment plan for now which would include checking her blood counts, monitoring for overt bleeding, transfusing to keep her hemoglobin above 7, and if there were signs of clinically and hemodynamically significant bleeding, no defined interventional radiology for possible embolization. I also explained to them that in the case of recurrent diverticular bleeding which fails endoscopic and radiologic control sometimes surgical resection is warranted. I also explained to them that she had other diverticuli in the colon although at this point we were certain that the current episode of bleeding was from her rectal diverticulum which was unusually large and in an unusual location. I also discussed the pathophysiology of diverticulosis, i.e. congenital abnormalities in the colonic wall that with time are associated with weakness and vascular abnormalities that can result in bleeding and infection. All questions were answered. 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
--- NOTE | 2017-08-25 11:57 | PN- Gastroenterology ---
Assessment/Plan GI Assessment/Recommendations: ASSESSMENT: 1. Bleeding from Rectal Diverticulum 2. S/P proctoscopy with controlled bleeding 3 Acute blood loss anemia I've had a long commerce sedation with the patient and her son regarding treatment plan and natural history of bleeding. They understand that she could rebleed both during this admission and at a later date. I've explained to them that it is important that should she have recurrent bleeding in the future that she come to the hospital immediately to make sure that in the event of excessive blood loss, as she has had during this episode, that she can be monitored and transfused as needed. All questions answered. RECOMMENDATIONS: 1. Start clear liquid diet and maintain on clears for today and advance gradually if there are no signs of bleeding 2. D/C serial H&H would repeat H&H again this evening at 6 and then again in the morning 3. Call GI immediately for any signs of recurrent bleeding Subjective Subjective: And denies nausea vomiting or abdominal pain. She has had no further hematochezia this morning. She is no longer tachycardic. She is tolerating clear liquids. A son is at the bedside. Review of Systems Constitutional: Denies: chills, fever. Cardiovascular: Denies: chest pain. Gastrointestinal: Denies: see HPI. Neurological/Psychological: Denies: no symptoms. Objective Vital Signs and I&Os Vital Signs Date Time Temp Pulse Resp B/P B/P Pulse O2 O2 Flow FiO2 Mean Ox Delivery Rate 08/25 0756 97.3 84 18 100/60 96 Room Air 08/25 0400 98 Room Air 08/25 0116 97.5 84 16 128/78 96 Room Air 08/25 0000 10 Room Air 08/24 2130 99 Room Air 08/24 2102 110 116/65 08/24 2045 98.3 105 18 95/63 96 Room Air 08/24 1849 97.5 112 15 88/59 97 Room Air Room Air Intake & Output 08/25 1600 08/25 0400 08/24 1600 08/24 0400 08/23 1600 08/23 0400 Intake Total 600 1350 Output Total 400 0 Balance 200 1350 Intake, Blood 350 Product Intake, IV 600 1000 Intake, Oral 0 0 Number 0 Bowel Movements Output, Urine 400 0 Patient 124 lb Weight Weight Bed scale Measurement Method Physical Exam General Appearance: well developed/nourished, alert, awake, comfortable Respiratory: normal breath sounds, lungs clear Cardiovascular: regular rate/rhythm, Normal S1 and S2 without rub, murmur or gallop Abdomen: normal bowel sounds, soft, non-tender, no organomegaly Extremities: normal inspection, no edema Neurologic/Psychiatric: awake, alert, oriented x 3, normal mood/affect Skin: intact, normal color, warm/dry Current Medications: Current Medications Sig/Max Start time Last Medication Dose Route Stop Time Status Admin Acetaminophen 650 MG Q6P PRN 08/24 2100 DC PO Magnesium Oxide 400 MG ONE ONE 08/25 1100 DC PO 08/25 1101 Magnesium Sulfate 1 GM ONCE ONE 08/25 0730 DC 08/25 Dextrose/Water 100 ML IV 08/25 1129 0926 Pantoprazole Sodium 40 MG DAILY 08/24 2200 AC 08/25 IV 0926 Potassium Chloride 40 MEQ ONCE ONE 08/25 1100 DC PO 08/25 1101 Potassium Chloride 40 MEQ ONCE ONE 08/25 1045 CAN PO 08/25 1046 Potassium Chloride 10 MEQ ONCE ONE 08/25 0730 DC 08/25 IV 08/25 0731 1048 Sodium Chloride 1,000 ML Q10H 08/24 2115 AC 08/25 IV 0927 Sodium Chloride 1,000 ML BOLUS ONE 08/24 2100 DC 08/24 IV 08/24 2259 2100 Sodium Chloride 1,000 ML BOLUS ONE 08/24 1900 DC 08/24 IV 08/24 1959 1912 Results Pertinent Lab Results: Laboratory Tests 08/25 08/25 1047 0625 Chemistry Sodium (137 - 145 mmol/L) 143 Potassium (3.5 - 5.1 mmol/L) 2.9 *L Chloride (98 - 107 mmol/L) 112 H Carbon Dioxide (22 - 30 mmol/L) 20 L Anion Gap (5 - 16) 11 BUN (7 - 17 mg/dL) 15 Creatinine (0.5 - 1.0 mg/dL) 0.5 Estimated GFR (>60 ml/min) > 60 Glucose (65 - 99 mg/dL) 111 H Calcium (8.4 - 10.2 mg/dL) 8.3 L Phosphorus (2.5 - 4.5 mg/dL) 3.0 Magnesium (1.6 - 2.3 mg/dL) 1.5 L Total Bilirubin (0.2 - 1.3 mg/dL) 0.5 AST (14 - 36 U/L) 26 ALT (9 - 52 U/L) 33 Albumin (3.5 - 5.0 g/dL) 3.2 L Hematology CBC w Diff Pending NO MAN DIFF REQ WBC (4.8 - 10.8 /CUMM) Pending 8.5 RBC (4.20 - 5.40 /CUMM) Pending 3.16 L Hgb (12.0 - 16.0 G/DL) Pending 9.7 L Hct (37 - 47 %) Pending 28.0 L MCV (81.0 - 99.0 FL) Pending 88.4 MCH (27.0 - 31.0 PG) Pending 30.6 MCHC (33.0 - 37.0 G/DL) Pending 34.6 RDW (11.5 - 14.5 %) Pending 13.6 Plt Count (130 - 400 /CUMM) Pending 224 MPV (7.4 - 10.4 FL) Pending 7.6 Gran % (42.2 - 75.2 %) 68.9 Lymphocytes % (20.5 - 51.1 %) 18.7 L Monocytes % (1.7 - 9.3 %) 11.6 H Eosinophils % (0 - 5 %) 0.4 Basophils % (0.0 - 2.0 %) 0.4 Absolute Granulocytes (1.4 - 6.5 /CUMM) 5.8 Absolute Lymphocytes (1.2 - 3.4 /CUMM) 1.6 Absolute Monocytes (0.10 - 0.60 /CUMM) 1.0 H Absolute Eosinophils (0.0 - 0.7 /CUMM) 0 Absolute Basophils (0.0 - 0.2 /CUMM) 0 08/25 08/24 8828 4612 Hematology CBC w Diff NO MAN DIFF REQ NO MAN DIFF REQ WBC (4.8 - 10.8 /CUMM) 9.5 14.3 H RBC (4.20 - 5.40 /CUMM) 3.25 L 2.98 L Hgb (12.0 - 16.0 G/DL) 9.8 L 9.1 L Hct (37 - 47 %) 29.1 L 26.4 L MCV (81.0 - 99.0 FL) 89.4 88.4 MCH (27.0 - 31.0 PG) 30.0 30.3 MCHC (33.0 - 37.0 G/DL) 33.6 34.3 RDW (11.5 - 14.5 %) 13.4 13.6 Plt Count (130 - 400 /CUMM) 224 284 MPV (7.4 - 10.4 FL) 7.9 7.8 Gran % (42.2 - 75.2 %) 73.5 79.7 H Lymphocytes % (20.5 - 51.1 %) 14.0 L 12.2 L Monocytes % (1.7 - 9.3 %) 11.9 H 7.8 Eosinophils % (0 - 5 %) 0.1 0.1 Basophils % (0.0 - 2.0 %) 0.5 0.2 Absolute Granulocytes (1.4 - 6.5 /CUMM) 7.0 H 11.4 H Absolute Lymphocytes (1.2 - 3.4 /CUMM) 1.3 1.7 Absolute Monocytes (0.10 - 0.60 /CUMM) 1.1 H 1.1 H Absolute Eosinophils (0.0 - 0.7 /CUMM) 0 0 Absolute Basophils (0.0 - 0.2 /CUMM) 0 0 /16 08/24 2130 1926 Chemistry Sodium (137 - 145 mmol/L) 139 Potassium (3.5 - 5.1 mmol/L) 3.5 Chloride (98 - 107 mmol/L) 103 Carbon Dioxide (22 - 30 mmol/L) 22 Anion Gap (5 - 16) 14 BUN (7 - 17 mg/dL) 19 H Creatinine (0.5 - 1.0 mg/dL) 0.7 Estimated GFR (>60 ml/min) > 60 BUN/Creatinine Ratio (7 - 25 %) 27.1 H Glucose (65 - 99 mg/dL) 154 H Calcium (8.4 - 10.2 mg/dL) 9.7 Total Bilirubin (0.2 - 1.3 mg/dL) 0.2 AST (14 - 36 U/L) 31 ALT (9 - 52 U/L) 38 Alkaline Phosphatase (<127 U/L) 58 Troponin I (< 0.11 ng/ml) < 0.01 Total Protein (6.3 - 8.2 g/dL) 6.5 Albumin (3.5 - 5.0 g/dL) 4.2 Globulin (1.9 - 4.2 gm/dL) 2.3 Albumin/Globulin Ratio (1.1 - 2.2 %) 1.8 Coagulation PT (9.4 - 12.5 SEC) 12.1 INR (0.90 - 1.19) 1.15 APTT (25 - 37 SEC) 31 Hematology CBC w Diff Cancelled NO MAN DIFF REQ WBC (4.8 - 10.8 /CUMM) Cancelled 14.5 H RBC (4.20 - 5.40 /CUMM) Cancelled 3.11 L Hgb (12.0 - 16.0 G/DL) Cancelled 9.5 L Hct (37 - 47 %) Cancelled 28.0 L MCV (81.0 - 99.0 FL) Cancelled 90.2 MCH (27.0 - 31.0 PG) Cancelled 30.5 MCHC (33.0 - 37.0 G/DL) Cancelled 33.8 RDW (11.5 - 14.5 %) Cancelled 13.1 Plt Count (130 - 400 /CUMM) Cancelled 362 MPV (7.4 - 10.4 FL) Cancelled 7.4 Gran % (42.2 - 75.2 %) 84.9 H Lymphocytes % (20.5 - 51.1 %) 7.7 L Monocytes % (1.7 - 9.3 %) 7.0 Eosinophils % (0 - 5 %) 0.2 Basophils % (0.0 - 2.0 %) 0.2 Absolute Granulocytes (1.4 - 6.5 /CUMM) 12.3 H Absolute Lymphocytes (1.2 - 3.4 /CUMM) 1.1 L Absolute Monocytes (0.10 - 0.60 /CUMM) 1.0 H Absolute Eosinophils (0.0 - 0.7 /CUMM) 0 Absolute Basophils (0.0 - 0.2 /CUMM) 0
[2017-08-25 12:47] LABS: ABSOLUTE BASOPHIL COUNT 0 /CUMM (0.0-0.2); ABSOLUTE EOSINOPHIL COUNT 0.1 /CUMM (0.0-0.7); ABSOLUTE GRANULOCYTE CT 4.7 /CUMM (1.4-6.5); ABSOLUTE LYMPH COUNT 1.4 /CUMM (1.2-3.4); ABSOLUTE MONOCYTE COUNT 0.9 /CUMM (0.10-0.60); BASOPHIL % 0.4 % (0.0-2.0); EOSINOPHIL % 0.8 % (0-5); GRANULOCYTE % 66.9 % (42.2-75.2); HEMATOCRIT 28.3 % (37-47); MEAN CORPUSCULAR HGB 29.9 PG (27.0-31.0); MEAN CORPUSCULAR HGB CONC 33.3 G/DL (33.0-37.0); MEAN CORPUSCULAR VOLUME 89.5 FL (81.0-99.0); MEAN PLATELET VOLUME 7.9 FL (7.4-10.4); PLATELET COUNT 216 /CUMM (130-400); RBC DISTRIBUTION WIDTH 13.5 % (11.5-14.5); RED BLOOD CELL CT 3.16 /CUMM (4.20-5.40); WHITE BLOOD CELL COUNT 7.1 /CUMM (4.8-10.8)
[2017-08-25 16:00] VITALS: BP 118/68
[2017-08-25 16:37] LABS: ABSOLUTE BASOPHIL COUNT 0 /CUMM (0.0-0.2); ABSOLUTE EOSINOPHIL COUNT 0.1 /CUMM (0.0-0.7); ABSOLUTE GRANULOCYTE CT 4.2 /CUMM (1.4-6.5); ABSOLUTE LYMPH COUNT 1.3 /CUMM (1.2-3.4); ABSOLUTE MONOCYTE COUNT 0.7 /CUMM (0.10-0.60); BASOPHIL % 0.5 % (0.0-2.0); GRANULOCYTE % 66.3 % (42.2-75.2); HEMATOCRIT 24.9 % (37-47); MEAN CORPUSCULAR HGB 29.9 PG (27.0-31.0); MEAN CORPUSCULAR HGB CONC 33.7 G/DL (33.0-37.0); MEAN CORPUSCULAR VOLUME 88.8 FL (81.0-99.0); MEAN PLATELET VOLUME 7.7 FL (7.4-10.4); PLATELET COUNT 198 /CUMM (130-400); RBC DISTRIBUTION WIDTH 13.9 % (11.5-14.5); RED BLOOD CELL CT 2.81 /CUMM (4.20-5.40); WHITE BLOOD CELL COUNT 6.4 /CUMM (4.8-10.8)
[2017-08-25 22:30] LABS: ABSOLUTE BASOPHIL COUNT 0 /CUMM (0.0-0.2); ABSOLUTE EOSINOPHIL COUNT 0.2 /CUMM (0.0-0.7); ABSOLUTE GRANULOCYTE CT 4.6 /CUMM (1.4-6.5); ABSOLUTE LYMPH COUNT 1.6 /CUMM (1.2-3.4); ABSOLUTE MONOCYTE COUNT 0.8 /CUMM (0.10-0.60); BASOPHIL % 0.6 % (0.0-2.0); EOSINOPHIL % 2.6 % (0-5); GRANULOCYTE % 63.9 % (42.2-75.2); MEAN CORPUSCULAR HGB 30.4 PG (27.0-31.0); MEAN CORPUSCULAR HGB CONC 34.2 G/DL (33.0-37.0); MEAN CORPUSCULAR VOLUME 88.8 FL (81.0-99.0); MEAN PLATELET VOLUME 7.8 FL (7.4-10.4); PLATELET COUNT 212 /CUMM (130-400); RBC DISTRIBUTION WIDTH 13.3 % (11.5-14.5); RED BLOOD CELL CT 2.93 /CUMM (4.20-5.40); WHITE BLOOD CELL COUNT 7.3 /CUMM (4.8-10.8)
[2017-08-25 23:00] VITALS: BP 132/80
[2017-08-26 05:19] LABS: ABSOLUTE BASOPHIL COUNT 0 /CUMM (0.0-0.2); ABSOLUTE EOSINOPHIL COUNT 0.3 /CUMM (0.0-0.7); ABSOLUTE GRANULOCYTE CT 5.1 /CUMM (1.4-6.5); ABSOLUTE LYMPH COUNT 1.7 /CUMM (1.2-3.4); ABSOLUTE MONOCYTE COUNT 0.8 /CUMM (0.10-0.60); BASOPHIL % 0.4 % (0.0-2.0); EOSINOPHIL % 3.7 % (0-5); GRANULOCYTE % 63.9 % (42.2-75.2); HEMATOCRIT 26.8 % (37-47); MEAN CORPUSCULAR HGB 30.5 PG (27.0-31.0); MEAN CORPUSCULAR VOLUME 89.6 FL (81.0-99.0); MEAN PLATELET VOLUME 7.9 FL (7.4-10.4); PLATELET COUNT 219 /CUMM (130-400); RBC DISTRIBUTION WIDTH 13.6 % (11.5-14.5); RED BLOOD CELL CT 2.98 /CUMM (4.20-5.40); WHITE BLOOD CELL COUNT 7.9 /CUMM (4.8-10.8)
[2017-08-26 08:14] VITALS: BP 104/58
--- NOTE | 2017-08-26 08:36 | PN- Pulmonary ---
Subjective HPI/Critical Care Issues: Appears stable NO sig bleeding blood work noted Objective Current Medications: Current Medications Sig/Max Start time Last Medication Dose Route Stop Time Status Admin Atorvastatin Calcium 40 MG DAILY 08/26 1000 AC PO Gemfibrozil 600 MG BID 08/25 2200 AC 08/25 PO 2150 Magnesium Oxide 400 MG ONE ONE 08/26 0645 DC 08/26 PO 08/26 0646 0712 Magnesium Oxide 400 MG ONE ONE 08/25 1700 DC 08/25 PO 08/25 1701 1740 Magnesium Oxide 400 MG ONE ONE 08/25 1100 DC 08/25 PO 08/25 1101 1221 Magnesium Sulfate 1 GM ONCE ONE 08/25 0730 DC 08/25 Dextrose/Water 100 ML IV 08/25 1129 0926 Metoprolol Succinate 25 MG DAILY 08/26 1000 AC PO Metoprolol Succinate 50 MG DAILY 08/25 1726 DC PO Pantoprazole Sodium 40 MG DAILY 08/24 2200 AC 08/25 IV 0926 Phosphate 250 MG PC AND AT BEDTIME 08/25 1800 AC 08/25 PO 2150 Potassium Chloride 40 MEQ ONCE ONE 08/26 0645 DC 08/26 PO 08/26 0646 0711 Potassium Chloride 40 MEQ ONCE ONE 08/25 1700 DC 08/25 PO 08/25 1701 1740 Potassium Chloride 40 MEQ ONCE ONE 08/25 1100 DC 08/25 PO 08/25 1101 1220 Potassium Chloride 40 MEQ ONCE ONE 08/25 1045 CAN PO 08/25 1046 Potassium Phosphate 15 mMol ONE ONE 08/25 1700 DC 08/25 Sodium Chloride 250 ML IV 08/25 2104 1828 Sodium Chloride 1,000 ML Q10H 08/24 2115 DC 08/25 IV 0927 Vital Signs & I&O Last 24 Hrs of Vitals and I&O: Vital Signs Date Time Temp Pulse Resp B/P B/P Pulse O2 O2 Flow FiO2 Mean Ox Delivery Rate 08/26 0814 97.0 98 21 104/58 97 Room Air 08/26 0400 97 Room Air 08/26 0000 95 Room Air 08/25 2300 98.4 86 28 132/80 95 Room Air 08/25 2000 99 Room Air 08/25 1600 96 Room Air 08/25 1600 97.6 89 17 118/68 96 Room Air Intake & Output 08/26 1600 08/26 0800 08/26 0000 Intake Total 240 900 Output Total 800 900 Balance -560 0 Intake, IV 0 250 Intake, Oral 240 650 Number 1 Bowel Movements Output, Urine 800 900 Laboratory Tests 08/26 08/25 0437 2153 Chemistry Sodium (137 - 145 mmol/L) 141 Potassium (3.5 - 5.1 mmol/L) 3.8 Chloride (98 - 107 mmol/L) 110 H Carbon Dioxide (22 - 30 mmol/L) 21 L Anion Gap (5 - 16) 10 BUN (7 - 17 mg/dL) 9 Creatinine (0.5 - 1.0 mg/dL) 0.5 Estimated GFR (>60 ml/min) > 60 Glucose (65 - 99 mg/dL) 98 Calcium (8.4 - 10.2 mg/dL) 8.6 Phosphorus (2.5 - 4.5 mg/dL) 2.8 Magnesium (1.6 - 2.3 mg/dL) 1.9 Total Bilirubin (0.2 - 1.3 mg/dL) 0.4 AST (14 - 36 U/L) 29 ALT (9 - 52 U/L) 40 Albumin (3.5 - 5.0 g/dL) 3.3 L Hematology CBC w Diff NO MAN DIFF REQ NO MAN DIFF REQ WBC (4.8 - 10.8 /CUMM) 7.9 7.3 RBC (4.20 - 5.40 /CUMM) 2.98 L 2.93 L Hgb (12.0 - 16.0 G/DL) 9.1 L 8.9 L Hct (37 - 47 %) 26.8 L 26.0 L MCV (81.0 - 99.0 FL) 89.6 88.8 MCH (27.0 - 31.0 PG) 30.5 30.4 MCHC (33.0 - 37.0 G/DL) 34.0 34.2 RDW (11.5 - 14.5 %) 13.6 13.3 Plt Count (130 - 400 /CUMM) 219 212 MPV (7.4 - 10.4 FL) 7.9 7.8 Gran % (42.2 - 75.2 %) 63.9 63.9 Lymphocytes % (20.5 - 51.1 %) 21.7 21.9 Monocytes % (1.7 - 9.3 %) 10.3 H 11.0 H Eosinophils % (0 - 5 %) 3.7 2.6 Basophils % (0.0 - 2.0 %) 0.4 0.6 Absolute Granulocytes (1.4 - 6.5 /CUMM) 5.1 4.6 Absolute Lymphocytes (1.2 - 3.4 /CUMM) 1.7 1.6 Absolute Monocytes (0.10 - 0.60 /CUMM) 0.8 H 0.8 H Absolute Eosinophils (0.0 - 0.7 /CUMM) 0.3 0.2 Absolute Basophils (0.0 - 0.2 /CUMM) 0 0 08/25 08/25 1621 1047 Chemistry Sodium (137 - 145 mmol/L) 140 Potassium (3.5 - 5.1 mmol/L) 3.3 L Chloride (98 - 107 mmol/L) 110 H Carbon Dioxide (22 - 30 mmol/L) 22 Anion Gap (5 - 16) 9 BUN (7 - 17 mg/dL) 11 Creatinine (0.5 - 1.0 mg/dL) 0.5 Estimated GFR (>60 ml/min) > 60 Glucose (65 - 99 mg/dL) 114 H Calcium (8.4 - 10.2 mg/dL) 8.5 Phosphorus (2.5 - 4.5 mg/dL) 1.7 L Magnesium (1.6 - 2.3 mg/dL) 1.9 Total Bilirubin (0.2 - 1.3 mg/dL) 0.3 AST (14 - 36 U/L) 24 ALT (9 - 52 U/L) 32 Albumin (3.5 - 5.0 g/dL) 3.3 L Hematology CBC w Diff NO MAN DIFF REQ NO MAN DIFF REQ WBC (4.8 - 10.8 /CUMM) 6.4 7.1 RBC (4.20 - 5.40 /CUMM) 2.81 L 3.16 L Hgb (12.0 - 16.0 G/DL) 8.4 L 9.4 L Hct (37 - 47 %) 24.9 L 28.3 L MCV (81.0 - 99.0 FL) 88.8 89.5 MCH (27.0 - 31.0 PG) 29.9 29.9 MCHC (33.0 - 37.0 G/DL) 33.7 33.3 RDW (11.5 - 14.5 %) 13.9 13.5 Plt Count (130 - 400 /CUMM) 198 216 MPV (7.4 - 10.4 FL) 7.7 7.9 Gran % (42.2 - 75.2 %) 66.3 66.9 Lymphocytes % (20.5 - 51.1 %) 20.9 19.4 L Monocytes % (1.7 - 9.3 %) 10.3 H 12.5 H Eosinophils % (0 - 5 %) 2.0 0.8 Basophils % (0.0 - 2.0 %) 0.5 0.4 Absolute Granulocytes (1.4 - 6.5 /CUMM) 4.2 4.7 Absolute Lymphocytes (1.2 - 3.4 /CUMM) 1.3 1.4 Absolute Monocytes (0.10 - 0.60 /CUMM) 0.7 H 0.9 H Absolute Eosinophils (0.0 - 0.7 /CUMM) 0.1 0.1 Absolute Basophils (0.0 - 0.2 /CUMM) 0 0 08/25 08/25 0625 0246 Chemistry Sodium (137 - 145 mmol/L) 143 Potassium (3.5 - 5.1 mmol/L) 2.9 *L Chloride (98 - 107 mmol/L) 112 H Carbon Dioxide (22 - 30 mmol/L) 20 L Anion Gap (5 - 16) 11 BUN (7 - 17 mg/dL) 15 Creatinine (0.5 - 1.0 mg/dL) 0.5 Estimated GFR (>60 ml/min) > 60 Glucose (65 - 99 mg/dL) 111 H Calcium (8.4 - 10.2 mg/dL) 8.3 L Phosphorus (2.5 - 4.5 mg/dL) 3.0 Magnesium (1.6 - 2.3 mg/dL) 1.5 L Total Bilirubin (0.2 - 1.3 mg/dL) 0.5 AST (14 - 36 U/L) 26 ALT (9 - 52 U/L) 33 Albumin (3.5 - 5.0 g/dL) 3.2 L Hematology CBC w Diff NO MAN DIFF REQ NO MAN DIFF REQ WBC (4.8 - 10.8 /CUMM) 8.5 9.5 RBC (4.20 - 5.40 /CUMM) 3.16 L 3.25 L Hgb (12.0 - 16.0 G/DL) 9.7 L 9.8 L Hct (37 - 47 %) 28.0 L 29.1 L MCV (81.0 - 99.0 FL) 88.4 89.4 MCH (27.0 - 31.0 PG) 30.6 30.0 MCHC (33.0 - 37.0 G/DL) 34.6 33.6 RDW (11.5 - 14.5 %) 13.6 13.4 Plt Count (130 - 400 /CUMM) 224 224 MPV (7.4 - 10.4 FL) 7.6 7.9 Gran % (42.2 - 75.2 %) 68.9 73.5 Lymphocytes % (20.5 - 51.1 %) 18.7 L 14.0 L Monocytes % (1.7 - 9.3 %) 11.6 H 11.9 H Eosinophils % (0 - 5 %) 0.4 0.1 Basophils % (0.0 - 2.0 %) 0.4 0.5 Absolute Granulocytes (1.4 - 6.5 /CUMM) 5.8 7.0 H Absolute Lymphocytes (1.2 - 3.4 /CUMM) 1.6 1.3 Absolute Monocytes (0.10 - 0.60 /CUMM) 1.0 H 1.1 H Absolute Eosinophils (0.0 - 0.7 /CUMM) 0 0 Absolute Basophils (0.0 - 0.2 /CUMM) 0 0 08/24 08/24 2304 2130 Hematology CBC w Diff NO MAN DIFF REQ Cancelled WBC (4.8 - 10.8 /CUMM) 14.3 H Cancelled RBC (4.20 - 5.40 /CUMM) 2.98 L Cancelled Hgb (12.0 - 16.0 G/DL) 9.1 L Cancelled Hct (37 - 47 %) 26.4 L Cancelled MCV (81.0 - 99.0 FL) 88.4 Cancelled MCH (27.0 - 31.0 PG) 30.3 Cancelled MCHC (33.0 - 37.0 G/DL) 34.3 Cancelled RDW (11.5 - 14.5 %) 13.6 Cancelled Plt Count (130 - 400 /CUMM) 284 Cancelled MPV (7.4 - 10.4 FL) 7.8 Cancelled Gran % (42.2 - 75.2 %) 79.7 H Lymphocytes % (20.5 - 51.1 %) 12.2 L Monocytes % (1.7 - 9.3 %) 7.8 Eosinophils % (0 - 5 %) 0.1 Basophils % (0.0 - 2.0 %) 0.2 Absolute Granulocytes (1.4 - 6.5 /CUMM) 11.4 H Absolute Lymphocytes (1.2 - 3.4 /CUMM) 1.7 Absolute Monocytes (0.10 - 0.60 /CUMM) 1.1 H Absolute Eosinophils (0.0 - 0.7 /CUMM) 0 Absolute Basophils (0.0 - 0.2 /CUMM) 0 08/24 192 Chemistry Sodium (137 - 145 mmol/L) 139 Potassium (3.5 - 5.1 mmol/L) 3.5 Chloride (98 - 107 mmol/L) 103 Carbon Dioxide (22 - 30 mmol/L) 22 Anion Gap (5 - 16) 14 BUN (7 - 17 mg/dL) 19 H Creatinine (0.5 - 1.0 mg/dL) 0.7 Estimated GFR (>60 ml/min) > 60 BUN/Creatinine Ratio (7 - 25 %) 27.1 H Glucose (65 - 99 mg/dL) 154 H Calcium (8.4 - 10.2 mg/dL) 9.7 Total Bilirubin (0.2 - 1.3 mg/dL) 0.2 AST (14 - 36 U/L) 31 ALT (9 - 52 U/L) 38 Alkaline Phosphatase (<127 U/L) 58 Troponin I (< 0.11 ng/ml) < 0.01 Total Protein (6.3 - 8.2 g/dL) 6.5 Albumin (3.5 - 5.0 g/dL) 4.2 Globulin (1.9 - 4.2 gm/dL) 2.3 Albumin/Globulin Ratio (1.1 - 2.2 %) 1.8 Coagulation PT (9.4 - 12.5 SEC) 12.1 INR (0.90 - 1.19) 1.15 APTT (25 - 37 SEC) 31 Hematology CBC w Diff NO MAN DIFF REQ WBC (4.8 - 10.8 /CUMM) 14.5 H RBC (4.20 - 5.40 /CUMM) 3.11 L Hgb (12.0 - 16.0 G/DL) 9.5 L Hct (37 - 47 %) 28.0 L MCV (81.0 - 99.0 FL) 90.2 MCH (27.0 - 31.0 PG) 30.5 MCHC (33.0 - 37.0 G/DL) 33.8 RDW (11.5 - 14.5 %) 13.1 Plt Count (130 - 400 /CUMM) 362 MPV (7.4 - 10.4 FL) 7.4 Gran % (42.2 - 75.2 %) 84.9 H Lymphocytes % (20.5 - 51.1 %) 7.7 L Monocytes % (1.7 - 9.3 %) 7.0 Eosinophils % (0 - 5 %) 0.2 Basophils % (0.0 - 2.0 %) 0.2 Absolute Granulocytes (1.4 - 6.5 /CUMM) 12.3 H Absolute Lymphocytes (1.2 - 3.4 /CUMM) 1.1 L Absolute Monocytes (0.10 - 0.60 /CUMM) 1.0 H Absolute Eosinophils (0.0 - 0.7 /CUMM) 0 Absolute Basophils (0.0 - 0.2 /CUMM) 0 Microbiology Date/Time Procedure - Status Source Growth 08/25 1000 Surveillance Culture - RECD UPPER RESP 08/25 0216 Surveillance Culture - CAN GI Cancelled: PER LABELS- PATIENT REFUSED Impression/Plan Impression/Plan Impression/Plan: General Appearance: well developed/nourished, no apparent distress, alert, awake , comfortable Head: atraumatic Neck: normal inspection Respiratory: normal breath sounds, chest non-tender Cardiovascular: s1, s2 Gastrointestinal: normal bowel sounds, soft, non-tender Extremities: no edema IMPRESSION + Acute blood loss anemia secondary to diverticular bleed, s/p colonoscopy and sub flex sig + Rectal diverticular bleeding which has stopped + History of hypertension REC Watch crit Diet per GI Monitor blood work and cbc PPI REplace potassium po SLowly resume BP meds at a lower dose (start metoprolol 25 mg first) Ok to the floor DC per GI
--- NOTE | 2017-08-26 08:45 | PN- Resident CRCU ---
Subjective HPI/CRCU Issues: The patient was seen and examined this morning. She offers no complaints. Reports having BM with "old blood" yesterday. No BM this morning. Denies any headache, dizziness, lightheadedness, n/v/abdominal pain, urinary symtpoms. VSS. No overnight events. Objective Vital Signs & I&O Last 8 Hrs of Vitals and I&O: Vital Signs Date Time Temp Pulse Resp B/P B/P Pulse O2 O2 Flow FiO2 Mean Ox Delivery Rate 08/26 08 97.0 98 21 104/58 97 Room Air 08/26 0400 97 Room Air 08/26 0000 95 Room Air 08/25 2300 98.4 86 28 132/80 95 Room Air 08/25 2000 99 Room Air 08/25 1600 96 Room Air 08/25 1600 97.6 89 17 118/68 96 Room Air Intake & Output 08/26 1600 08/26 0800 08/26 0000 Intake Total 240 900 Output Total 800 900 Balance -560 0 Intake, IV 0 250 Intake, Oral 240 650 Number 1 Bowel Movements Output, Urine 800 900 Exam General Appearance: no apparent distress, alert, awake, comfortable Head: atraumatic Neck: supple Respiratory: normal breath sounds, chest non-tender, no respiratory distress, lungs clear Cardiovascular: regular rate/rhythm, No murmurs Gastrointestinal: normal bowel sounds, soft, non-tender, no organomegaly Extremities: normal inspection, No edema Skin: intact Current Medications: Current Medications Sig/Max Start time Last Medication Dose Route Stop Time Status Admin Atorvastatin Calcium 40 MG DAILY 08/26 1000 AC 08/26 PO 0909 Gemfibrozil 600 MG BID 08/25 2200 AC 08/26 PO 0909 Magnesium Oxide 400 MG ONE ONE 08/26 0645 DC 08/26 PO 08/26 0646 0712 Magnesium Oxide 400 MG ONE ONE 08/25 1700 DC 08/25 PO 08/25 1701 1740 Magnesium Oxide 400 MG ONE ONE 08/25 1100 DC 08/25 PO 08/25 1101 1221 Magnesium Sulfate 1 GM ONCE ONE 08/25 0730 DC 08/25 Dextrose/Water 100 ML IV 08/25 1129 0990 Metoprolol Succinate 25 MG DAILY 08/26 1000 AC 08/26 PO 0909 Metoprolol Succinate 50 MG DAILY 08/25 1726 DC PO Pantoprazole Sodium 40 MG DAILY 08/24 2200 AC 08/26 IV 0909 Phosphate 250 MG PC AND AT BEDTIME 08/25 1800 AC 08/26 PO 0909 Potassium Chloride 40 MEQ ONCE ONE 08/26 0645 DC 08/26 PO 08/26 0646 0711 Potassium Chloride 40 MEQ ONCE ONE 08/25 1700 DC 08/25 PO 08/25 1701 1740 Potassium Chloride 40 MEQ ONCE ONE 08/25 1100 DC 08/25 PO 08/25 1101 1220 Potassium Chloride 40 MEQ ONCE ONE 08/25 1045 CAN PO 08/25 1046 Potassium Phosphate 15 mMol ONE ONE 08/25 1700 DC 08/25 Sodium Chloride 250 ML IV 08/25 2104 1828 Sodium Chloride 1,000 ML Q10H 08/24 2115 DC 08/25 IV 0927 Impression/Plan Impression/Problem List Impression: This is a a 67-year-old female with a past medical history significat for hypertension, and hyperlipidemia presented to emergency department with a chief complaint of bright red blood per rectum. Assessment/plan: #Acute blood loss anemia secondary to diverticular bleed, s/p colonoscopy: Patient started experiencing bleeding from rectal diverticulum after screening colonoscopy. In ER patient had 4 bloody bowel movements. She underwent urgent colonoscopy. The bleeding was controlled using BiCAP electrocautery. She has received 2 units of PRBCs since admission. * Monitor H&H: Has remained stable so far * Transfuse if hemoglobin less than 7 * Diet was advanced * Continue Protonix * We will get in touch with GI if there is recurrent bleeding. There is high probability of rebleed during this admission or later. We will get in touch with interventional radiology for embolization if required after consulting with GI #Hypokalemia: Monitor BEP and replete accordingly #History of HTN: * Continue with [employer] metoprolol * Lisinopril and hydrochlorothiazide on hold, start as blood pressure allows #History of HLD: * Continue with statin and gemfibrozil Full code/heart healthy diet/DVT prophylaxis alps Problem List: 1. Lower GI bleed Pain Ratin Tomorrow's Labs & Rationales: CBC to monitor H&H BEP to monitor K Plan DVT/Prophylaxis: mechanical
--- NOTE | 2017-08-26 12:09 | PN- Gastroenterology ---
Assessment/Plan GI Assessment/Recommendations: ASSESSMENT: No further bleeding from rectal diverticulum. RECOMMENDATIONS: Patient stable for discharge. Have explained to Ms. Barry and her children that should she have recurrent bleeding, or any other change in clinical condition, she is to return to the ED imediately. All ?s answered. Subjective Subjective: Tolerating advanced diet. bowel movement yesterday that was rust colored, formed. Today normal formed brown stool. No nausea, vomiting, abdominal pain. No drop in H/H with stable vital signs. Objective Vital Signs and I&Os Vital Signs Date Time Temp Pulse Resp B/P B/P Pulse O2 O2 Flow FiO2 Mean Ox Delivery Rate 08/26 0814 97.0 98 21 104/58 97 Room Air 08/26 0400 97 Room Air 08/26 0000 95 Room Air 08/25 2300 98.4 86 28 132/80 95 Room Air 08/25 2000 99 Room Air 08/25 1600 96 Room Air 08/25 1600 97.6 89 17 118/68 96 Room Air Intake & Output 08/26 1600 08/26 0400 08/25 1600 08/25 0400 08/24 1600 08/24 0400 Intake Total 779 198 0790 1350 Output Total 593 763 7089 0 Balance -560 0 920 1350 Intake, Blood 350 Product Intake, IV 0 250 1320 1000 Intake, Oral 240 650 600 0 Number 1 0 Bowel Movements Output, Urine 365 893 3647 0 Patient 124 lb Weight Weight Bed scale Measurement Method Physical Exam General Appearance: alert, awake, comfortable Respiratory: normal breath sounds, lungs clear Cardiovascular: regular rate/rhythm Abdomen: normal bowel sounds, soft, non-tender, no organomegaly Neurologic/Psychiatric: oriented x 3, normal mood/affect Current Medications: Current Medications Sig/Max Start time Last Medication Dose Route Stop Time Status Admin Atorvastatin Calcium 40 MG DAILY 08/26 1000 AC 08/26 PO 0909 Gemfibrozil 600 MG BID 08/25 2200 AC 08/26 PO 0909 Magnesium Oxide 400 MG ONE ONE 08/26 0645 DC 08/26 PO 08/26 0646 0712 Magnesium Oxide 400 MG ONE ONE 08/25 1700 DC 08/25 PO 08/25 1701 1740 Metoprolol Succinate 25 MG DAILY 08/26 1000 AC 08/26 PO 0909 Metoprolol Succinate 50 MG DAILY 08/25 1726 DC PO Pantoprazole Sodium 40 MG DAILY 08/24 2200 AC 08/26 IV 0909 Phosphate 250 MG PC AND AT BEDTIME 08/25 1800 AC 08/26 PO 1206 Potassium Chloride 40 MEQ ONCE ONE 08/26 0645 DC 08/26 PO 08/26 0646 0711 Potassium Chloride 40 MEQ ONCE ONE 08/25 1700 DC 08/25 PO 08/25 1701 1740 Potassium Phosphate 15 mMol ONE ONE 08/25 1700 DC 08/25 Sodium Chloride 250 ML IV 08/25 2104 1828 Sodium Chloride 1,000 ML Q10H 08/24 211 DC 08/25 IV 0927 Results Pertinent Lab Results: Laboratory Tests 08/26 08/25 0437 2153 Chemistry Sodium (137 - 145 mmol/L) 141 Potassium (3.5 - 5.1 mmol/L) 3.8 Chloride (98 - 107 mmol/L) 110 H Carbon Dioxide (22 - 30 mmol/L) 21 L Anion Gap (5 - 16) 10 BUN (7 - 17 mg/dL) 9 Creatinine (0.5 - 1.0 mg/dL) 0.5 Estimated GFR (>60 ml/min) > 60 Glucose (65 - 99 mg/dL) 98 Calcium (8.4 - 10.2 mg/dL) 8.6 Phosphorus (2.5 - 4.5 mg/dL) 2.8 Magnesium (1.6 - 2.3 mg/dL) 1.9 Total Bilirubin (0.2 - 1.3 mg/dL) 0.4 AST (14 - 36 U/L) 29 ALT (9 - 52 U/L) 40 Albumin (3.5 - 5.0 g/dL) 3.3 L Hematology CBC w Diff NO MAN DIFF REQ NO MAN DIFF REQ WBC (4.8 - 10.8 /CUMM) 7.9 7.3 RBC (4.20 - 5.40 /CUMM) 2.98 L 2.93 L Hgb (12.0 - 16.0 G/DL) 9.1 L 8.9 L Hct (37 - 47 %) 26.8 L 26.0 L MCV (81.0 - 99.0 FL) 89.6 88.8 MCH (27.0 - 31.0 PG) 30.5 30.4 MCHC (33.0 - 37.0 G/DL) 34.0 34.2 RDW (11.5 - 14.5 %) 13.6 13.3 Plt Count (130 - 400 /CUMM) 219 212 MPV (7.4 - 10.4 FL) 7.9 7.8 Gran % (42.2 - 75.2 %) 63.9 63.9 Lymphocytes % (20.5 - 51.1 %) 21.7 21.9 Monocytes % (1.7 - 9.3 %) 10.3 H 11.0 H Eosinophils % (0 - 5 %) 3.7 2.6 Basophils % (0.0 - 2.0 %) 0.4 0.6 Absolute Granulocytes (1.4 - 6.5 /CUMM) 5.1 4.6 Absolute Lymphocytes (1.2 - 3.4 /CUMM) 1.7 1.6 Absolute Monocytes (0.10 - 0.60 /CUMM) 0.8 H 0.8 H Absolute Eosinophils (0.0 - 0.7 /CUMM) 0.3 0.2 Absolute Basophils (0.0 - 0.2 /CUMM) 0 0 08/25 08/25 1621 1047 Chemistry Sodium (137 - 145 mmol/L) 140 Potassium (3.5 - 5.1 mmol/L) 3.3 L Chloride (98 - 107 mmol/L) 110 H Carbon Dioxide (22 - 30 mmol/L) 22 Anion Gap (5 - 16) 9 BUN (7 - 17 mg/dL) 11 Creatinine (0.5 - 1.0 mg/dL) 0.5 Estimated GFR (>60 ml/min) > 60 Glucose (65 - 99 mg/dL) 114 H Calcium (8.4 - 10.2 mg/dL) 8.5 Phosphorus (2.5 - 4.5 mg/dL) 1.7 L Magnesium (1.6 - 2.3 mg/dL) 1.9 Total Bilirubin (0.2 - 1.3 mg/dL) 0.3 AST (14 - 36 U/L) 24 ALT (9 - 52 U/L) 32 Albumin (3.5 - 5.0 g/dL) 3.3 L Hematology CBC w Diff NO MAN DIFF REQ NO MAN DIFF REQ WBC (4.8 - 10.8 /CUMM) 6.4 7.1 RBC (4.20 - 5.40 /CUMM) 2.81 L 3.16 L Hgb (12.0 - 16.0 G/DL) 8.4 L 9.4 L Hct (37 - 47 %) 24.9 L 28.3 L MCV (81.0 - 99.0 FL) 88.8 89.5 MCH (27.0 - 31.0 PG) 29.9 29.9 MCHC (33.0 - 37.0 G/DL) 33.7 33.3 RDW (11.5 - 14.5 %) 13.9 13.5 Plt Count (130 - 400 /CUMM) 198 216 MPV (7.4 - 10.4 FL) 7.7 7.9 Gran % (42.2 - 75.2 %) 66.3 66.9 Lymphocytes % (20.5 - 51.1 %) 20.9 19.4 L Monocytes % (1.7 - 9.3 %) 10.3 H 12.5 H Eosinophils % (0 - 5 %) 2.0 0.8 Basophils % (0.0 - 2.0 %) 0.5 0.4 Absolute Granulocytes (1.4 - 6.5 /CUMM) 4.2 4.7 Absolute Lymphocytes (1.2 - 3.4 /CUMM) 1.3 1.4 Absolute Monocytes (0.10 - 0.60 /CUMM) 0.7 H 0.9 H Absolute Eosinophils (0.0 - 0.7 /CUMM) 0.1 0.1 Absolute Basophils (0.0 - 0.2 /CUMM) 0 0 08/25 08/25 0625 0246 Chemistry Sodium (137 - 145 mmol/L) 143 Potassium (3.5 - 5.1 mmol/L) 2.9 *L Chloride (98 - 107 mmol/L) 112 H Carbon Dioxide (22 - 30 mmol/L) 20 L Anion Gap (5 - 16) 11 BUN (7 - 17 mg/dL) 15 Creatinine (0.5 - 1.0 mg/dL) 0.5 Estimated GFR (>60 ml/min) > 60 Glucose (65 - 99 mg/dL) 111 H Calcium (8.4 - 10.2 mg/dL) 8.3 L Phosphorus (2.5 - 4.5 mg/dL) 3.0 Magnesium (1.6 - 2.3 mg/dL) 1.5 L Total Bilirubin (0.2 - 1.3 mg/dL) 0.5 AST (14 - 36 U/L) 26 ALT (9 - 52 U/L) 33 Albumin (3.5 - 5.0 g/dL) 3.2 L Hematology CBC w Diff NO MAN DIFF REQ NO MAN DIFF REQ WBC (4.8 - 10.8 /CUMM) 8.5 9.5 RBC (4.20 - 5.40 /CUMM) 3.16 L 3.25 L Hgb (12.0 - 16.0 G/DL) 9.7 L 9.8 L Hct (37 - 47 %) 28.0 L 29.1 L MCV (81.0 - 99.0 FL) 88.4 89.4 MCH (27.0 - 31.0 PG) 30.6 30.0 MCHC (33.0 - 37.0 G/DL) 34.6 33.6 RDW (11.5 - 14.5 %) 13.6 13.4 Plt Count (130 - 400 /CUMM) 224 224 MPV (7.4 - 10.4 FL) 7.6 7.9 Gran % (42.2 - 75.2 %) 68.9 73.5 Lymphocytes % (20.5 - 51.1 %) 18.7 L 14.0 L Monocytes % (1.7 - 9.3 %) 11.6 H 11.9 H Eosinophils % (0 - 5 %) 0.4 0.1 Basophils % (0.0 - 2.0 %) 0.4 0.5 Absolute Granulocytes (1.4 - 6.5 /CUMM) 5.8 7.0 H Absolute Lymphocytes (1.2 - 3.4 /CUMM) 1.6 1.3 Absolute Monocytes (0.10 - 0.60 /CUMM) 1.0 H 1.1 H Absolute Eosinophils (0.0 - 0.7 /CUMM) 0 0 Absolute Basophils (0.0 - 0.2 /CUMM) 0 0 08/24 08/24 2304 2130 Hematology CBC w Diff NO MAN DIFF REQ Cancelled WBC (4.8 - 10.8 /CUMM) 14.3 H Cancelled RBC (4.20 - 5.40 /CUMM) 2.98 L Cancelled Hgb (12.0 - 16.0 G/DL) 9.1 L Cancelled Hct (37 - 47 %) 26.4 L Cancelled MCV (81.0 - 99.0 FL) 88.4 Cancelled MCH (27.0 - 31.0 PG) 30.3 Cancelled MCHC (33.0 - 37.0 G/DL) 34.3 Cancelled RDW (11.5 - 14.5 %) 13.6 Cancelled Plt Count (130 - 400 /CUMM) 284 Cancelled MPV (7.4 - 10.4 FL) 7.8 Cancelled Gran % (42.2 - 75.2 %) 79.7 H Lymphocytes % (20.5 - 51.1 %) 12.2 L Monocytes % (1.7 - 9.3 %) 7.8 Eosinophils % (0 - 5 %) 0.1 Basophils % (0.0 - 2.0 %) 0.2 Absolute Granulocytes (1.4 - 6.5 /CUMM) 11.4 H Absolute Lymphocytes (1.2 - 3.4 /CUMM) 1.7 Absolute Monocytes (0.10 - 0.60 /CUMM) 1.1 H Absolute Eosinophils (0.0 - 0.7 /CUMM) 0 Absolute Basophils (0.0 - 0.2 /CUMM) 0 08/24 1926 Chemistry Sodium (137 - 145 mmol/L) 139 Potassium (3.5 - 5.1 mmol/L) 3.5 Chloride (98 - 107 mmol/L) 103 Carbon Dioxide (22 - 30 mmol/L) 22 Anion Gap (5 - 16) 14 BUN (7 - 17 mg/dL) 19 H Creatinine (0.5 - 1.0 mg/dL) 0.7 Estimated GFR (>60 ml/min) > 60 BUN/Creatinine Ratio (7 - 25 %) 27.1 H Glucose (65 - 99 mg/dL) 154 H Calcium (8.4 - 10.2 mg/dL) 9.7 Total Bilirubin (0.2 - 1.3 mg/dL) 0.2 AST (14 - 36 U/L) 31 ALT (9 - 52 U/L) 38 Alkaline Phosphatase (<127 U/L) 58 Troponin I (< 0.11 ng/ml) < 0.01 Total Protein (6.3 - 8.2 g/dL) 6.5 Albumin (3.5 - 5.0 g/dL) 4.2 Globulin (1.9 - 4.2 gm/dL) 2.3 Albumin/Globulin Ratio (1.1 - 2.2 %) 1.8 Coagulation PT (9.4 - 12.5 SEC) 12.1 INR (0.90 - 1.19) 1.15 APTT (25 - 37 SEC) 31 Hematology CBC w Diff NO MAN DIFF REQ WBC (4.8 - 10.8 /CUMM) 14.5 H RBC (4.20 - 5.40 /CUMM) 3.11 L Hgb (12.0 - 16.0 G/DL) 9.5 L Hct (37 - 47 %) 28.0 L MCV (81.0 - 99.0 FL) 90.2 MCH (27.0 - 31.0 PG) 30.5 MCHC (33.0 - 37.0 G/DL) 33.8 RDW (11.5 - 14.5 %) 13.1 Plt Count (130 - 400 /CUMM) 362 MPV (7.4 - 10.4 FL) 7.4 Gran % (42.2 - 75.2 %) 84.9 H Lymphocytes % (20.5 - 51.1 %) 7.7 L Monocytes % (1.7 - 9.3 %) 7.0 Eosinophils % (0 - 5 %) 0.2 Basophils % (0.0 - 2.0 %) 0.2 Absolute Granulocytes (1.4 - 6.5 /CUMM) 12.3 H Absolute Lymphocytes (1.2 - 3.4 /CUMM) 1.1 L Absolute Monocytes (0.10 - 0.60 /CUMM) 1.0 H Absolute Eosinophils (0.0 - 0.7 /CUMM) 0 Absolute Basophils (0.0 - 0.2 /CUMM) 0
[2017-08-26 14:00] VITALS: BP 132/78
--- NOTE | 2017-08-26 15:42 | Patient Discharge Instructions ---
Discharge Instructions General Discharge Information You were seen/treated for: lower GI bleed Special Instructions: Please follow up with your primary care physician and gastroenterology Dr. Casillas or Dr. Kasper within two weeks of discharge. Return to the hospital if you develop lightheadedness, feel faint, weak, or develop dark and/or bloody stools. Acute Coronary Syndrome Inclusion Criteria At DC or during hospital stay patient has or had the following: ACS DIAGNOSIS No Discharge Core Measures Meds if any: Prescribed or Continued at Discharge Meds if any: NOT Prescribed or Continued at Discharge Congestive Heart Failure Inclusion Criteria At DC or during hospital stay patient has or had the following: CHF DIAGNOSIS No Discharge Core Measures Meds if any: Prescribed or Continued at Discharge Meds if any: NOT Prescribed or Continued at Discharge Cerebrovascular accident Inclusion Criteria At DC or during hospital stay patient has or had the following: CVA/TIA Diagnosis No Discharge Core Measures Meds if any: Prescribed or Continued at Discharge Meds if any: NOT Prescribed or Continued at Discharge Venous thromboembolism Inclusion Criteria VTE Diagnosis No VTE Type NONE VTE Confirmed by (Test) NONE Discharge Core Measures - Per Current guidelines, there needs to be overlap - treatment for the first 5 days of Warfarin therapy. - If discharged on Warfarin prior to 5 days of - overlap therapy, the patient will need to be - assessed for post discharge needs including - *Post discharge parental anticoagulation - *Warfarin and/or parental anticoagulation education - *Follow up date to check INR post discharge At least 5 days overlap therapy as Inpatient No Meds if any: Prescribed or Continued at Discharge Note: Overlap Therapy is Warfarin and Anticoagulant Meds if any: NOT Prescribed or Continued at Discharge
== END 2017-08-26 17:30 | DRG 378 ==
LOC: ERH 18:33 → ERHI 20:30 → 2NA 20:30 → ENRESERV 20:46 → CRI 21:26 → ENTRNSPT 08-26 13:15 → EDTRNSPTSTS 08-26 13:26 → EDTRNSPT 08-26 13:26 → 2NA 08-26 13:39 → CMPTRNSPT 08-26 13:42 → 2NA 08-26 17:30
PROVIDERS: Dermatology; Internal Medicine; Internal Medicine Infectious Disease; Physician Assistant Medical; Student in an Organized Health Care Education/Training Program
PROC: 0W3P8ZZ Control Bleeding in Gastrointestinal Tract, Via Natural or Artificial Opening Endoscopic (ICD-10-PCS; principal; 2017-08-24)
PROC: 30233N1 Transfusion of Nonautologous Red Blood Cells into Peripheral Vein, Percutaneous Approach (ICD-10-PCS; 2017-08-24)
PROC: 0DCP8ZZ Extirpation of Matter from Rectum, Via Natural or Artificial Opening Endoscopic (ICD-10-PCS; 2017-08-24)
DX: K57.31 Diverticulosis of large intestine without perforation or abscess with bleeding (principal); D62 Acute posthemorrhagic anemia; I95.9 Hypotension, unspecified; E78.5 Hyperlipidemia, unspecified; I10 Essential (primary) hypertension; K64.9 Unspecified hemorrhoids; K21.9 Gastro-esophageal reflux disease without esophagitis; E87.6 Hypokalemia
CPT/HCPCS: CCU; 36415; 82436; 86920; 93005; 93010; 99291; J0171; P9016